=== PATIENT | male | born 1955 | race Caucasian/White ===

== ENCOUNTER 2020-05-20 09:15 | Inpatient (IN) | payer OTHER, MEDICAID, SELFPAY ==
[2020-05-20] VITALS (97 sets, daily range): BP systolic 74–159; BP diastolic 50–94; PULSE 62–175; RESP 0–27; TEMP 35.5–36.6; O2SAT 89–100
--- NOTE | 2020-05-20 | RT.EKG_ITS ---
APPROVED REPORT Exam: Resting ECG Patient Location: I HR:127 bpm ECG Measurements Heart Rate 127 AXIS UT 118 P 62 QRSd 134 QRS -77 QT 355 T 24 QTc 517 <Conclusion> Sinus tachycardia...rate> 99 Atrial premature complex...SV complex w/ short R-R interval RBBB and LAFB...QRSd >120mS, axis(-40,240)
[2020-05-20] MEDS: Normal Saline Flush 10 ML SYR (09:00)
[2020-05-20] MEDS: Ondansetron 4 MG/2 ML VIAL (09:00)
[2020-05-20] MEDS: MORPHine 2 MG/ML SYR (09:00)
--- NOTE | 2020-05-20 09:30 | HPE_ITS ---
Date of service: 05/20/20 Time of Service: 09:30 Assessment and Plan Assessment and plan (1) Jejunal ulcer: Status: Acute Assessment and plan: Patient has been started on IV Protonix. His hemoglobin has dropped down to 8.4 which I think is more of his baseline given his degree of dehydration in the hospital. Do not feel that he is actively bleeding at this point. However he has high risk for this and we are going to transfuse him. I do not feel he is stable for anesthesia and he at this time (2) Lactic acidosis: Status: Acute (3) Elevated troponin: Status: Acute (4) Elevated serum GGT level: Status: Acute (5) Hypomagnesemia: Status: Acute (6) Small bowel obstruction: Status: Acute Assessment and plan: We will continue with conservative medical management. If the bowel obstruction does not resolve and he will need to be transferred to [facility] for surgical intervention. (7) Alcohol withdrawal: Status: Acute Assessment and plan: It is unknown whether he has ever had a seizures in the past (8) Acute respiratory failure with hypoxia and hypercapnia: Status: Acute Assessment and plan: Patient was intubated and sedated for alcohol withdrawals and for airway safety. (9) Rapid atrial fibrillation: Status: Acute Assessment and plan: He was started on diltiazem and IV metoprolol for this and has responded nicely. (10) Urinary retention: Status: Acute (11) Essential hypertension: Status: Acute (12) Exocrine pancreatic insufficiency: Status: Acute (13) BPH loc w urin obs/LUTS: Status: Acute Assessment and plan: Urology was able to place Otoole catheter. History of Present Illness Consults Consult date: 05/20/20 Narrative: Pt was seen and examined at 9am. On original exam-patient was not complaining of nausea and abdominal pain. I did review his CTs from [facility][1] which did show that patient was status post Whipple, that he did have a bowel obstruction, and some thickening in the stomach and. Patient was rather uncooperative and was not very forthcoming with his medical history. He did admit that he drinks 6-7 shots of alcohol a day. He has had a longstanding sobriety, but has recently relapsed. At that point patient was not giving us any further information. I did review all the information that was sent to us from [facility][1]. CT scan from [facility][1] did show that there is wall thickening of the stomach consistent with gastroenteritis. There is a small bowel obstruction with focal transition point in the left mid abdomen likely from adhesions. No free air. Changes associated from Whipple.. patient was having a lot of pain. Patient was medicated for his pain. Fluid hydration was started. An NG tube was placed. Routine nursing cares were started. Patient had abdominal pain, but did not exhibit signs of peritonitis. His abdomen was not significantly distended. There is no ascites. Postsurgical changes noted. He did not have many bowel sounds. I did reevaluate the patient at 11 AM. He at this point he is starting to exhibit pretty significant signs of withdrawal. He was quite tremulous he was becoming more incoherent during his speech. His thought processes were no longer linear and logical. His vitals remained stable. We did start him on a lcohol withdrawal protocol. Again at this point he does not exhibit any signs peritonitis. Nursing had worked on getting a Otoole catheter placed but were not able to place a Otoole catheter. And urology was consulted for catheter placement. At noon I went back and evaluated the patient he had been medicated for with Perper per withdrawal protocol. He was discovered after reviewing his chart fr [facility]. That he had an extensive. History of obstructive sleep apnea. He is not known whether he is using his CPAP at home. He had the respiratory pattern of someone with obesity hypoventilation syndrome, despite his not being obese. He was also significantly having agitation, and was quite delirious. He had developed tachycardia into the 130s. I did obtain an EKG and repeat troponins. I did consult Dr. Anaya at this point. We did spend an hour reviewing his chart from [facility]. 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 He has been on the vent multiple times with Sirs and respiratory failure. 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 His Whipple was complicated by postop infection and required multiple drains. ( E. coli adn Klebsiella) He also sustained a splenic rupture. Unknown if this was traumatic or secondary to surgery. He is on insulin and pancreatic enzymes. He has had problems with chronic problems with diarrhea. From reviewing his notes from [facility]. He had been started on metoprolol in the past for A. fib. He was in the hospital in 2018 with Sirs/sepsis and severe protein calorie malnutrition. The final discharge diagnosis was viral enteritis/clinical dehydration/severe malnutrition. They had stopped his metoprolol at that point because he was having issues with hypotension even once the sepsis had resolved. He was not in A. fib. He is also had multiple problems with the anastomotic ulcer on the jejunal side. He has been scoped multiple times and has had to have multiple transfusions because of this. He supposed to be on Carafate daily. He has not taken it for the last 2 to 3 weeks as was noted in the nurses notes at [facility][1]. At this point he still was very agitated and restless. He has been currently sedated for alcohol withdrawal. He was exhibiting signs of DTs. He was medicated appropriately based on his CIWA score. He was still agitated and quite hypoxic. He was started on CPAP/BiPAP status. ABG was obtained. Patient was still restless and agitated trying to climb out of bed and pulling on lines. His PCO2 was 67. I did discuss the case and on review all his records from [facility] at this point. Dr. Kumar I did agree that he needed to be intubated to protect his airway, for alcohol withdrawals, PADDY, and respiratory failure. Anesthesia was consulted for intubation. Dr. Melissa did place a central line. Anesthesia also placed an A-line. Patient was reevaluated again at 7 PM repeat labs were reviewed. His hemoglobin had dropped down to 8.4- which I think is more likely to be his baseline. there is no fluid in the NGT/ no blood. He has not moved his bowels or had any bloody bowel movement since he has been in the hospital. He will be transfused. He has had some transient hypotension. Whether this is from the anemia or from the diltiazem drip or from propofol or from the alcohol withdrawal is undetermined at this point. However he does not seem to be actively hemorrhaging. But he does have an extensive history of GI bleed from ulceration at his gastrojejunal anastomosis. There is no signs of ischemic bowel or other acute surgical emergency. We will continue with conservative medical management of his abdomen at this time. Hospitals service was consulted for medical management as well. From reviewing his notes at [facility] he also had had a PE he in the past while on L ovenox. He was started on Coumadin but this had to be discontinued because of pulmonary bronchial hemorrhage. Past medical history noted from 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 He recently had a outpatient sleep study done which did recommend CPAP machine. He was under investigation by cardiology at [facility] for syncopal episodes. Past surgeries significant for: Iridotomy, whipple & BII reconstruction- 2014, mult IR drainages, mult EGD, multiple EUS and biopsy, G-tube and J-tube, IR angio-embolization of the splenic rupture, chest tube, multiple paracentesis, anterior abdominal wall hernia repair at [facility][1] in 2019 4 hours was spent in critical care time by myself of this patient today. Review of Systems Unobtainable due to mental condition and Unobtainable due to mental status [facility] Medical History (Updated 05/20/20 @ 22:43 by Lorie Bazan DO) Acute respiratory failure with hypoxia (Acute) Alcohol induced acute pancreatitis (Acute) BPH loc w urin obs/LUTS (Acute) Cervical spine fracture (Acute) Cholangitis (Acute) Chronic low back pain (Acute) COPD (chronic obstructive pulmonary disease) Depression (Chronic) Diastolic dysfunction (Acute) DM (diabetes mellitus) non-insulin dependent Essential hypertension (Acute) Exocrine pancreatic insufficiency (Acute) GERD without esophagitis (Acute) History of ETOH abuse Infarction of spleen (Acute) Jejunal ulcer (Acute) Narrow angle glaucoma suspect (Acute) PADDY (obstructive sleep apnea) Protein calorie malnutrition (Inactive) Pulmonary embolism (Chronic) RLS (restless legs syndrome) (Acute) Syncopal episodes (Chronic) Unspecified primary angle-closure glaucoma (Acute) Surgical History (Updated 05/20/20 @ 14:19 by Chiquita Myers MD) Cholecystectomy Colonoscopy - [facility] (03/01/17) History of esophagogastroduodenoscopy (EGD) (Inactive) History of pancreatectomy (Acute) Whipple/Billroth II S/P colonoscopy (Acute) Splenic rupture (Acute) Family History (Updated 05/28/19 @ 09:40 by Radha Palmer RN) Mother Bone cancer Father MVA (motor vehicle accident) Brother Stomach cancer Daughter No problems noted. Social History (Updated 05/28/19 @ 09:40 by Radha Palmer RN) Smoking/Tobacco Use Status: Current every day Drug use: Never What is your relationship status?: Panel score (0-1 are the most socially isolated patients): 0 Meds Home Medications and Allergies Home Medications Medication Instructions Recorded Confirmed Type ropinirole [Requip] 1 tab PO HS 06/02/14 05/20/20 History albuterol sulfate [Proair Hfa] 2 puff INHALATION Q4H PRN inhaler 01/31/17 05/20/20 History NS citalopram 20 mg PO DAILY tab-cap NS 01/31/17 05/28/19 History [id number] [Zenpep Dr 1 tab-cap PO TID tab-cap NS 01/31/17 05/20/20 History 20,000 Units Capsule] polyethylene glycol 3350 [Miralax] 255 gm PO for colonoscopy #1 gm 01/31/17 05/28/19 History sildenafil [Viagra] 50 mg PO PRN NS 01/31/17 History acetaminophen 500 mg tablet 500 mg PO Q4H PRN 05/28/19 05/28/19 History cholecalciferol (vitamin D3) 25 1,000 unit PO DAILY 05/28/19 05/28/19 History mcg (1,000 unit) capsule ferrous sulfate 142 mg (45 mg 142 mg PO DAILY 05/28/19 05/20/20 History iron) tablet,extended release furosemide 40 mg tablet 40 mg PO BID 05/28/19 05/28/19 History metoprolol succinate 100 mg 25 mg PO DAILY tab-cap NS 05/28/19 05/28/19 History tablet,extended release 24 hr mirtazapine 30 mg tablet 15 mg PO HS tab 05/28/19 05/20/20 History nicotine 7 mg/24 hr daily 1 patch TD Q24H 05/28/19 05/28/19 History transdermal patch omeprazole 10 mg capsule,delayed 40 mg PO BID tab-cap NS 05/28/19 05/28/19 History release sennosides 8.6 mg-docusate sodium 2 tab PO BID PRN tab 05/28/19 05/28/19 History 50 mg tablet citalopram mg 05/20/20 History furosemide 20 mg PO DAILY 05/20/20 05/20/20 History pantoprazole [Protonix] 40 mg PO Q12H 05/20/20 05/20/20 History potassium chloride 10 meq PO DAILY 05/20/20 05/20/20 History sucralfate [Carafate] 1 g PO QACHS 05/20/20 05/20/20 History Allergies Allergy/AdvReac Type Severity Reaction Status Date / Time ciprofloxacin [From Cipro] Allergy Unverified 06/19/14 07:29 citalopram hydrobromide AdvReac Unknown Unverified 06/19/14 07:29 [From Celexa] hydrochlorothiazide AdvReac Unknown Unverified 06/19/14 07:29 Exam Const General: acute distress, anxious, disheveled and ill appearing Nutritional Appearance: cachectic and malnourished Orientation: oriented to person Limitations: behavioral limitations [facility] Head: normal to inspection and no palpable skull fracture Ears: hearing grossly normal bilaterally General nose exam: external nose normal, nares normal and no nasal discharge Face and sinus: normal facial exam and face symmetric Mouth: oral mucosae normal Teeth and gingiva: poor dentition Eyes Sclera: sclerae normal Pupils: PERRL Direct ophthalmoscopy: normal light reflex Chest Chest: normal inspection of the chest Other: CTA b/l. Resp Effort & Inspection: normal respiratory effort and able to speak in complete sentences Auscultation: clear to auscultation bilaterally Cardio Jugular venous pressure: no JVD Rate: tachycardic Rhythm: abnormal rhythm Other: BP is stable. C nursing notes for numbers GI Other: Postsurgical changes noted. No hernias. There is mild distention. Paucity of bowel sounds. No overt peritonitis. No ascites. Neuro General: moves all extremities Cognition: abnormal cognition Speech: other (Agitated and uncooperative) Motor: other (DT's/tremors) Psych Appearance: disheveled Speech and Movement: agitated Attitude: belligerent Insight: limited Judgment: limited Results Labs Result diagrams: 05/20/20 17:32 05/20/20 13:50
[2020-05-20] MEDS: Pantoprazole 40 MG VIAL IVP ×2 (10:08→23:30)
[2020-05-20] MEDS: Normal Saline Flush 10 ML SYR IVP ×4 (10:09→18:37)
[2020-05-20] MEDS: HYDROmorphone 2 MG/ML VIAL 0.5 MG IVP (10:09)
[2020-05-20 10:10] LABS: Lactate 1.8 mmol/L (0.6-1.4)
[2020-05-20 10:21] LABS: Hemoglobin A1C 5.9 % (3.8-5.6)
[2020-05-20 10:30] LABS: Iron 34 ug/dL (65-175); Total Iron Binding Capacity 122 ug/dL (250-450); Transferrin Sat 28 % (20-55)
[2020-05-20 10:33] LABS: ALT 37 U/L (16-63); AST 46 U/L (15-37); Albumin 2.3 g/dL (3.4-5.0); Alkaline Phosphatase 205 U/L (46-116); Anion Gap 8.7 mmol/L (3-11); BUN 18 mg/dL (7-18); Bilirubin, Total 1.6 mg/dL (0.2-1.0); CO2 30.3 mmol/L (21.0-32.0); CREATININE 1.04 mg/dL (0.70-1.30); Calcium 6.5 mg/dL (8.5-10.1); Chloride 100 mmol/L (98-107); Glucose 156 mg/dL (74-106); Magnesium 0.9 mg/dL (1.8-2.4); Potassium 3.7 mmol/L (3.5-5.1); Sodium 139 mmol/L (136-145); Total Protein 5.4 g/dL (6.4-8.2)
[2020-05-20 10:38] LABS: Troponin I 0.08 ng/mL (<0.06)
[2020-05-20 10:43] LABS: Ferritin 554 ng/mL (26-388)
[2020-05-20] MEDS: Normal Saline 500 ML 1000 ML IV (10:50)
[2020-05-20 11:02] LABS: D-Dimer 929 ng/mlFEU (<500)
[2020-05-20 11:09] LABS: GGT 803 U/L (15-85)
[2020-05-20] MEDS: Albuterol/Ipratropium 3 ML UPD VIAL UPD (11:15)
[2020-05-20] MEDS: MAGNESIUM SULFATE 2 GM/50 ML BAG IVPB (12:15)
[2020-05-20] MEDS: Normal Saline 1,000 ML 150 ML IV ×2 (12:45→19:44)
[2020-05-20] MEDS: LORazepam 2 MG/ML VIAL IVP (12:46)
[2020-05-20] MEDS: MULTIVITAMIN 10 ML, THIAMINE 100 MG, FOLIC ACID 1 MG in DEXTROSE 5%-0.45% SALINE 1,000 ML 42 ML IV (12:47)
[2020-05-20] MEDS: Insulin Aspart 300 UNITS/3 ML PEN SC ×2 (13:04→18:50)
--- NOTE | 2020-05-20 13:08 | UCONE_ITS ---
Date of service: 05/20/20 Time of Service: 12:20 Assessment and Plan Assessment and plan (1) Urinary retention: Status: Acute Assessment and plan: After consent given by patient a 16 Japanese coud? tip was placed without difficulty. LUMBER ESTIMATOR attached catheter to bedside bag where yellow urine drained freely. Patient reports relief of his suprapubic discomfort. Report to nursing staff about procedure was given. History of Present Illness History of Present Illness Chief Complaint: urinary retention Narrative: Urology was asked to consult in terms of needing a catheter placement for this individual. Patient reports the last time he voided was approximately 8:00 this morning. He is unable to void over the last 4 hours. He is feeling suprapubic discomfort. He does not have any flank pain. Patient reports that this is happened previously. He has had urinary retention that he has been able to work through. He is unaware of any prostate issues. He is not taking any prostate medications to his knowledge. He reports no fevers, hematuria, suprapubic discomfort, or flank pain. Nursing reported an attempt to place catheter however met resistance and were unable to place catheter for this individual. Consults Consult date: 05/20/20 Requesting physician: Lorie Bazan Review of Systems Narrative: As noted in HPI [facility] Medical History (Updated 05/20/20 @ 13:19 by Hillary Reich DNP) Acute respiratory failure with hypoxia (Acute) Alcohol induced acute pancreatitis (Acute) Cholangitis (Acute) Chronic low back pain (Acute) COPD (chronic obstructive pulmonary disease) Depression (Chronic) Diastolic dysfunction (Acute) DM (diabetes mellitus) non-insulin dependent Essential hypertension (Acute) Exocrine pancreatic insufficiency (Acute) GERD without esophagitis (Acute) History of ETOH abuse Infarction of spleen (Acute) Narrow angle glaucoma suspect (Acute) PADDY (obstructive sleep apnea) Protein calorie malnutrition (Inactive) Pulmonary embolism (Chronic) RLS (restless legs syndrome) (Acute) Syncopal episodes (Chronic) Unspecified primary angle-closure glaucoma (Acute) Surgical History (Updated 05/20/20 @ 13:16 by Chiquita Myers MD) Cholecystectomy Colonoscopy - [facility] (03/01/17) Splenic rupture (Acute) Family History (Updated 05/28/19 @ 09:40 by Radha Palmer RN) Mother Bone cancer Father MVA (motor vehicle accident) Brother Stomach cancer Daughter No problems noted. Social History (Updated 05/28/19 @ 09:40 by Radha Palmer RN) Smoking/Tobacco Use Status: Current every day Drug use: Never What is your relationship status?: Panel score (0-1 are the most socially isolated patients): 0 Exam Const General: cooperative and in distress Orientation: alert and awake Eyes Sclera: sclerae normal Resp Effort & Inspection: normal respiratory effort and able to speak in complete sentences Male General Exam: Yes normal external exam Penis: normal penis Meatus: meatus normal Results Last Vital Signs Pulse 122 H 05/20/20 11:15 Resp 20 05/20/20 11:15 Pulse Ox 99 05/20/20 11:15 Labs Result diagrams: 05/20/20 09:56 Labs: Laboratory Results - last 24 hr 05/20/20 05/20/20 05/20/20 09:56 09:56 09:56 D-Dimer 929 H Sodium 139 Potassium 3.7 Chloride 100 Carbon Dioxide 30.3 Anion Gap 8.7 BUN 18 Creatinine 1.04 Estimated GFR/1.73 m2 >= 60.00 Glucose 156 H Hemoglobin A1c 5.9 H Lactate Calcium 6.5 L Magnesium 0.9 L Iron TIBC Transferrin % Sat Ferritin Total Bilirubin 1.6 H GGT AST 46 H ALT 37 Alkaline Phosphatase 205 H Troponin I Total Protein 5.4 L Albumin 2.3 L 05/20/20 05/20/20 05/20/20 09:56 09:56 09:56 D-Dimer Sodium Potassium Chloride Carbon Dioxide Anion Gap BUN Creatinine Estimated GFR/1.73 m2 Glucose Hemoglobin A1c Lactate 1.8 H Calcium Magnesium Iron TIBC Transferrin % Sat Ferritin Total Bilirubin GGT 803 H AST ALT Alkaline Phosphatase Troponin I 0.08 H* Total Protein Albumin 05/20/20 05/20/20 09:56 09:56 D-Dimer Sodium Potassium Chloride Carbon Dioxide Anion Gap BUN Creatinine Estimated GFR/1.73 m2 Glucose Hemoglobin A1c Lactate Calcium Magnesium Iron 34 L TIBC 122 L Transferrin % Sat 28 Ferritin 554 H Total Bilirubin GGT AST ALT Alkaline Phosphatase Troponin I Total Protein Albumin Insert Bladder Catheter Procedure performed by: Hillary Reich Indication for procedure: Yes Informed consent given: Yes Position of patient: supine Sterilizing agent: Yes Type of anesthesia: topical gel Catheter size (Fr): 16 Catheter type: coude tip Lubrication: Yes Catheter inserted: without difficulty Volume instilled into catheter balloon: 10cc Urine color: yellow Urine clarity: clear Clots present: No Irrigation: No Catheter attached to: bedside drainage bag Patient tolerated procedures: well Complications: No
--- NOTE | 2020-05-20 13:11 | W.MEDCONSULT ---
Date of service: 05/20/20 Time of Service: 13:35 Assessment and Plan Assessment and plan (1) Acute respiratory failure with hypoxia and hypercapnia: Status: Acute Assessment and plan: In setting of alcohol withdrawal, requiring medication with benzodiazepines, and SBO requiring narcotic pain medication, with underlying PADDY. The patient has an NGT for decompression of his small bowel. While he seems to be more awake on BiPAP with ABG pending, he is also tremulous right now as this note is being written, which indicates to me that he will require more benzodiazepines in the near future - and this is just the beginning of his alcohol withdrawal. Additionally, BiPAP is blowing air into his GI tract. Ultimately, I feel the safest thing to do for this patient will be ET intubation. Anesthesia has been notified. The patient does have a h/o c-spine fracture earlier this month - obtaining XR to see where this is. (2) Rapid atrial fibrillation: Status: Acute Assessment and plan: In setting of alcohol withdrawal/acute illness. It does look like at some point the patient was on diltiazem orally, but no diagnosis is documented as to why. Per Dr Hyman's note in [facility] record, the patient had several recent syncopal events and just finished wearing a zio patch - we do not have those results at this time, but I suspect that these happened in setting of rapid Afib. Echo has been obtained - await read. Monitor in the ICU on cardizem drip and, if needed, additional IV lopressor. Treat underlying withdrawal, SBO. (3) Alcohol withdrawal: Status: Acute Assessment and plan: Read above - ultimately, I think the patient will need to be intubated and placed on propofol drip. (4) Small bowel obstruction: Status: Acute Assessment and plan: Reviewed CT read from [facility] and [facility] - does seem to have a transition point, but proximal portion of the bowel is not horribly dilated. Discussed with Dr Melissa - patient does not need emergent surgery. Should he need surgery, I think that a transfer to a tertiary care facility would be indicated. (5) Elevated troponin: Status: Acute Assessment and plan: Probably indicator of slight cardiac strain from rapid Afib rather than a true NSTEMI. Continue to trend troponins. Monitor in the ICU. I do not think he needs HEATHER. (6) Hypomagnesemia: Status: Acute Assessment and plan: Replete and recheck in am (7) Elevated serum GGT level: Status: Acute Assessment and plan: In light of alcoholic liver disease, I do not think this represents true liver failure. Will need to be trended. Will calculat discriminant function score once have labs back (8) Lactic acidosis: Status: Acute Assessment and plan: Multifactorial: due to Afib, dehydration, alcoholic liver disease, bowel obstruction, hypoxemia. Continue IVF, slow down HR, decompress bowel. Continue to trend. 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 On PPI. Patient noncompliant with carafate. COntinue PPI. Monitor for GI bleeding. 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 On arrival to our facility, the patient was found to be in rapid Afib with HR in 120s - 130s, and to be in alcohol withdrawal, requiring IV ativan. After he received 3 mg of IV ativan, he became virtually unresponsive with apneic episodes and hypoxia. BiPAP was initiated, but the patient remains arousable only to sternal rub. He is having apneic episodes on the BiPAP as well. Hospitalists were consulted to help manage his alcohol withdrawal, respiratory failure, and rapid Afib. The patient cannot provide any history at the time of the exam. Review of Systems Unobtainable due to mental status [facility] Medical History (Updated 05/20/20 @ 14:56 by Chiquita Myers MD) Acute respiratory failure with hypoxia (Acute) Alcohol induced acute pancreatitis (Acute) Cervical spine fracture (Acute) Cholangitis (Acute) Chronic low back pain (Acute) COPD (chronic obstructive pulmonary disease) Depression (Chronic) Diastolic dysfunction (Acute) DM (diabetes mellitus) non-insulin dependent Essential hypertension (Acute) Exocrine pancreatic insufficiency (Acute) GERD without esophagitis (Acute) History of ETOH abuse Infarction of spleen (Acute) Jejunal ulcer (Acute) Narrow angle glaucoma suspect (Acute) PADDY (obstructive sleep apnea) Protein calorie malnutrition (Inactive) Pulmonary embolism (Chronic) RLS (restless legs syndrome) (Acute) Syncopal episodes (Chronic) Unspecified primary angle-closure glaucoma (Acute) Surgical History (Updated 05/20/20 @ 14:19 by Chiquita Myers MD) Cholecystectomy Colonoscopy - [facility] (03/01/17) History of esophagogastroduodenoscopy (EGD) (Inactive) History of pancreatectomy (Acute) Whipple/Billroth II S/P colonoscopy (Acute) Splenic rupture (Acute) Family History (Updated 05/28/19 @ 09:40 by Radha Palmer RN) Mother Bone cancer Father MVA (motor vehicle accident) Brother Stomach cancer Daughter No problems noted. Social History (Updated 05/28/19 @ 09:40 by Radha Palmer RN) Smoking/Tobacco Use Status: Current every day Drug use: Never What is your relationship status?: Panel score (0-1 are the most socially isolated patients): 0 Exam Narrative Exam Narrative: General: Middle-aged male who is sedated, arousable only to sternal rub, not following commands Neurological: As above; no obvious focal deficits, but lethargic/obtunded Psychiatric: impossible to assess at this time Skin: visible skin intact HEENT: Atraumatic, normocephalic, at the time of my exam, opening eyes only to sternal rub, EOMI, dry MM, NGT in place, BiPAP mask being put on Cardiovascular: irregularly irregular rhythm, tachycardic Lungs: CTAB - diminished; having apneic episodes of BiPAP Gastrointestinal: soft, no bowel sounds, not distended Genitourinary: no delgado catheter at the time of my exam Extremities: no edema BLE's, +1 pedal pulses B Results Last Vital Signs Pulse 122 H 05/20/20 11:15 Resp 20 05/20/20 11:15 Pulse Ox 99 05/20/20 11:15 Labs Result diagrams: 05/20/20 13:50 05/20/20 09:56 Labs: Laboratory Results - last 24 hr 05/20/20 05/20/20 05/20/20 09:56 09:56 09:56 D-Dimer 929 H Sodium 139 Potassium 3.7 Chloride 100 Carbon Dioxide 30.3 Anion Gap 8.7 BUN 18 Creatinine 1.04 Estimated GFR/1.73 m2 >= 60.00 Glucose 156 H Hemoglobin A1c 5.9 H Lactate Calcium 6.5 L Magnesium 0.9 L Iron TIBC Transferrin % Sat Ferritin Total Bilirubin 1.6 H GGT AST 46 H ALT 37 Alkaline Phosphatase 205 H Troponin I Total Protein 5.4 L Albumin 2.3 L 05/20/20 05/20/20 05/20/20 09:56 09:56 09:56 D-Dimer Sodium Potassium Chloride Carbon Dioxide Anion Gap BUN Creatinine Estimated GFR/1.73 m2 Glucose Hemoglobin A1c Lactate 1.8 H Calcium Magnesium Iron TIBC Transferrin % Sat Ferritin Total Bilirubin GGT 803 H AST ALT Alkaline Phosphatase Troponin I 0.08 H* Total Protein Albumin 05/20/20 05/20/20 09:56 09:56 D-Dimer Sodium Potassium Chloride Carbon Dioxide Anion Gap BUN Creatinine Estimated GFR/1.73 m2 Glucose Hemoglobin A1c Lactate Calcium Magnesium Iron 34 L TIBC 122 L Transferrin % Sat 28 Ferritin 554 H Total Bilirubin GGT AST ALT Alkaline Phosphatase Troponin I Total Protein Albumin
[2020-05-20] MEDS: dilTIAZem 125 MG in Normal Saline 100 ML 10 MG IV (13:15)
[2020-05-20 13:39] LABS: HCO3 26 mmol/L (22-28); pO2 137 mmHg (83-108)
[2020-05-20 13:44] LABS: Site Right Radial; pCO2 67 mmHg (34-47); sO2 > 99 % (94-98)
[2020-05-20 13:45] LABS: FIO2 60 %
[2020-05-20 14:08] LABS: Abs Immature Grans 0.04 k/cumm (0.0-0.09); Absolute Basophil Count 0.01 k/cumm (0.0-0.2); Basophils % 0.1; HCT 33.3 % (40.0-50.0); HGB 10.7 g/dL (13.5-17.5); Immature Grans % 0.3 %; Lactate 3.3 mmol/L (0.6-1.4); Lymphocytes % 3.2; Mean Corp. HGB Concentration 32.1 g/dL (32.0-36.0); Mean Corpuscular Hemoglobin 34.4 pg (27.0-33.0); Mean Corpuscular Volume 107.1 fL (80-95); Mean Platelet Volume 10.5 fL (8.0-11.0); Monocytes % 4.5; Neutrophils % 91.9; Platelet Count 358 x1000/uL (130-400); RBC 3.11 m/cumm (4.50-6.00); RBC Distribution Width 14.2 % (11.8-14.1); White Blood Cell Count 13.01 k/cumm (4.4-10.8)
[2020-05-20 14:11] LABS: Absolute Lymphocyte Count 0.42 k/cumm (1.2-3.4); Absolute Monocyte Count 0.59 k/cumm (0.11-0.7); Absolute Neutrophil Count 11.96 k/cumm (1.2-6.7)
--- NOTE | 2020-05-20 14:22 | DI.RAD_ITS ---
EXAM: XR PORTABLE CHEST AP CLINICAL HISTORY: acute hypoxic hypercapnic respiratory failure TECHNIQUE: 2D digital imaging was performed. COMPARISON: No priors for comparison FINDINGS: MEDIASTINUM: Normal. HEART: Normal. PULMONARY VASCULATURE: Normal. LUNGS: Increased markings in the left base which may represent atelectasis or pneumonia. PLEURAL SPACE: No pleural effusion or pneumothorax. BONE:No acute abnormality. OTHER FINDINGS:Tip of the nasogastric tube is seen below the hemidiaphragm just within the stomach. IMPRESSION: Increased lung markings in the left base which may represent atelectasis or pneumonia. Tip of the nasogastric tube is just within the stomach. DATA REPOSITORY: RADIATION DOSE DELIVERED:
--- NOTE | 2020-05-20 14:26 | DI.RAD_ITS ---
EXAM: XR CERVICAL SPINE 1V CLINICAL HISTORY: h/o recent cervical fracture. TECHNIQUE: 2D digital imaging was performed. COMPARISON: No exams were available for comparison FINDINGS: This is an incomplete examination. Only portable, semi upright lateral images were obtained. C1 thr ough the superior aspect of C6 are visualized on this examination. There is normal alignment. The v ertebral bodies and disc spaces appear well maintained. There is a nasogastric tube in place. The p revertebral soft tissues are unremarkable. IMPRESSION: Incomplete cervical spine series. Visualized cervical spine shows normal alignment. Portions of a nasogastric tube are in place. DATA REPOSITORY: RADIATION DOSE DELIVERED:
[2020-05-20 14:30] LABS: Anisocytosis 1+; Diff Comment RBC Morph Reviewed; Macrocytosis 1+; Poikilocytes 1+; Polychromasia Present
--- NOTE | 2020-05-20 14:33 | DI.RAD_ITS ---
EXAM: 2D digital imaging was performed. CLINICAL HISTORY: SBO. COMPARISON: No exams were available for comparison TECHNIQUE: Supine views of the abdomen performed. FINDINGS: BOWEL GAS PATTERN: Mildly distended loops of small bowel are seen in the upper abdomen. CALCIFICATIONS: Vascular calcifications are present. OSSEOUS STRUCTURES: Degenerative changes in the spine. OTHER FINDINGS: There is a Otoole catheter in place. There is contrast seen in the renal collecting s ystem and urinary bladder likely reflecting recent CT scan. Surgical clips in the upper abdomen. IMPRESSION: 1. Mildly dilated loops of small bowel. This may represent an ileus or possible small-bowel obstruct ion. Please correlate clinically. 2. No radiopaque calculi. DATA REPOSITORY: RADIATION DOSE DELIVERED:
[2020-05-20] MEDS: MAGNESIUM SULFATE 4 GM/100 ML BAG IVPB (15:03)
[2020-05-20 15:13] LABS: INR 1.1 (0.9-1.1); Prothrombin Time 11.3 sec (9.3-11.0)
[2020-05-20 15:18] LABS: ALT 35 U/L (16-63); AST 41 U/L (15-37); Albumin 2.2 g/dL (3.4-5.0); Alkaline Phosphatase 190 U/L (46-116); Bilirubin, Direct 0.51 mg/dL (0.00-0.20); Total Protein 5.2 g/dL (6.4-8.2)
[2020-05-20 15:21] LABS: Anion Gap 11.4 mmol/L (3-11); BUN 19 mg/dL (7-18); CO2 25.6 mmol/L (21.0-32.0); Calcium 6.5 mg/dL (8.5-10.1); Chloride 103 mmol/L (98-107); Estimated GFR 55.06 (mL/min/1.73m2); Glucose 184 mg/dL (74-106); Magnesium 1.8 mg/dL (1.8-2.4); Potassium 3.4 mmol/L (3.5-5.1); Sodium 140 mmol/L (136-145)
[2020-05-20 15:27] LABS: Troponin I 0.08 ng/mL (<0.06)
[2020-05-20] MEDS: PROPOFOL 1,000 MG/100 ML BTL 27.27 MG IVPB ×2 (15:31→18:36)
[2020-05-20] MEDS: Metoprolol 5 MG/5 ML VIAL (15:36)
--- NOTE | 2020-05-20 15:55 | PDOC.ANES ---
Date of service: 05/20/20 Time of Service: 15:30 Anesthesia Note Report Anesthesia Note: Airway Management Note (Intubation): Called to secure airway of Mr. Martinez. Consent obtained from patient, Dr. Myers was unable to contact next of kin. Pt. is on BiPAP. Due to concern for controlling his airway/high aspiration risk with altered mental status in the setting of receiving Ativan for alcohol withdrawal as well as having a small bowel obstruction. Preinduction arterial line placed. Pt. bed moved away from wall, suction and BVM at head of bed. RT at bedside with ventilator ready. Pt. continued to preoxygenate on BiPAP at 100% FiO2. Pt. induced with 3mg versed, 50mg propofol, 100mg succinylcholine and 50mg rocuronium. ETT placed at 1530 using #3 blade/glidescope with grade I view with very dry oral mucosa. ETT passed to 21cm at lips (edentulous). Positive ETCO2 capnography, remained hemodynamically stable and was started on propofol drip at 75mcg/kg/min for post management. No complications with first attempt success. X-Ray will be ordered after central line placement. Report given to RN/MD.
--- NOTE | 2020-05-20 16:00 | DI.RAD_ITS ---
EXAM: XR PORTABLE CHEST AP CLINICAL HISTORY: s/p intubation and central line placement TECHNIQUE: 2D digital imaging was performed. COMPARISON: CR XR PORTABLE CHEST AP from 05/20/2020 FINDINGS: MEDIASTINUM: Normal. HEART: Normal. PULMONARY VASCULATURE: Normal. LUNGS: Bilateral basilar infiltrates. PLEURAL SPACE: Blunting of the left costophrenic angle which may represent a small pleural effusion. BONE:Degenerative changes in the spine. OTHER FINDINGS:The endotracheal tube tip terminates 5.2 cm above the ernesto. The nasogastric tube ti p terminates in the stomach. The tip of the left-sided central venous catheter is in good position i n the superior vena cava. IMPRESSION: 1. Lines and tubes as described above. 2. Bilateral basilar infiltrates which may represent atelectasis or pneumonia. Small left pleural ef fusion. DATA REPOSITORY: RADIATION DOSE DELIVERED:
--- NOTE | 2020-05-20 16:41 | DI.VRAD_ITS ---
PROCEDURE INFORMATION: Exam: XR Chest, 1 View Exam date and time: 05/20/2020 4:20 PM Age: 65 years old Clinical indication: Device placement; Picc TECHNIQUE: Imaging protocol: XR of the chest Views: 1 view. COMPARISON: CR XR PORTABLE CHEST AP 05/20/2020 2:16 PM FINDINGS: Tubes, catheters and devices: Left-sided approach PICC terminates over the proximal SVC. Endotracheal tube tip projects over the mid intrathoracic trachea. Lungs: Ill-defined right basilar opacity. Clear lungs otherwise. Normal cardiomediastinal silhouette otherwise. Pleural space: Suspected small left-sided pleural effusion. Heart/Mediastinum: See Lungs finding. Vasculature: Vascular coil projects over the mid abdomen. Aortic arch calcifications. Bones/joints: No acute displaced fractures. Gastrointestinal tract: Tip of esophagogastric tube projects over the expected location of the gastric lumen. IMPRESSION: 1. Lines and tubes as above. 2. Suspected small left-sided pleural effusion. 3. Ill-defined right basilar opacity is indeterminate possibly representing atelectasis but would be concerning for pneumonia in the appropriate clinical setting. Dictated and Authenticated by: Denny Mccann MD. Ordering:CESAR Moser MD
[2020-05-20 16:47] LABS: BE -2.2 mmol/L (-3-3); HCO3 26 mmol/L (22-28); pH 7.22 (7.35-7.45); pO2 155 mmHg (83-108)
[2020-05-20 16:52] LABS: pCO2 63 mmHg (34-47); sO2 > 99 % (94-98)
--- NOTE | 2020-05-20 17:03 | W.PM.OP ---
Date of service: 05/20/20 Time of Service: 17:03 Operative Note Operative Note DATE OF PROCEDURE: 05/20/20 PRE-OP DIAGNOSIS: intubation, alcohol withdrawel POST-OP DIAGNOSIS: same PROCEDURE: Left subclavian central line placement SURGEON: Shanti Melissa ANESTHESIA: local (1% Lidocaine) and other (Patient intubated and sedated on propofol) ESTIMATED BLOOD LOSS: 5 PATHOLOGY: none sent COMPLICATIONS: None Patient was transported to: no change Patient's condition: critical Indications: Mr. Martinez 65-year-old gentleman who was a direct admit from [facility] for a small bowel obstruction. As soon as patient arrived to the intensive care unit he was in full withdrawal from alcohol. He was agitated and so he was placed on a CIWA scale and given Ativan. In order to get his delirium tremens under control he would get enough Ativan that he then would stop breathing or do some guppy breathing. His blood pressures were low and he kept going into V. tach. Hospitalist was consulted. Patient was placed on CPAP for his hypercarbia but due to the underlying SBO we were afraid that he would vomit and aspirate. We discussed plan of intubation with his Daughter who is his front desk person. Patient was intubated. A line was placed by anesthesia. Procedure Description: After informed consent was obtained the patient was placed in a supine position on his ICU bed. The head of the bed was lowered. A time out was done and her name, and procedure to be done were reviewed. Sharps were counted. The left chest wall was then prepped and draped in a standard fashion with chlorhexidine. Next 5 cc of 1% Lidocaine was injected into the dermis and subcutaneous tissue along the left clavicle. The introducer needle was then slowly advanced into the subclavian vein. Once I was able to pull venous blood into the syringe, the syringe was removed from the needle. The guidewire was then placed easily without resistance into the subclavian vein. The needle was removed. A small incision was made with an 11 blade next to the guidewire. The dilator was then placed over the guidewire into the vein. The dilator was removed and the triple lumen catheter was placed over the guidewire into the vein to 16 cm. The guidewire was removed and needless valves were placed on each lumen. Each lumen was then aspirated and flushed with sterile saline. The Central line was then secured in place with 2-0 silk suture. The skin was cleaned and dried and an antibiotic wheel was applied at the skin entrance. An occlusive dressing was then applied. The drapes were removed. Sharps were counted and were correct at the end of the procedure. The patient tolerated the procedure well. Stat CXR was ordered and showed good position of the central line and no pneumothorax.
[2020-05-20] MEDS: Lactated Ringers 1,000 ML 1000 ML IV (17:15)
[2020-05-20 17:50] LABS: Lactate 3.4 mmol/L (0.6-1.4)
[2020-05-20 17:51] LABS: HCO3 26 mmol/L (22-28); pCO2 53 mmHg (34-47); pH 7.29 (7.35-7.45); pO2 85 mmHg (83-108); sO2 97 % (94-98); tCO2 25 mmol/L (22-29)
[2020-05-20 17:54] LABS: Abs Immature Grans 0.05 k/cumm (0.0-0.09); Absolute Lymphocyte Count 0.28 k/cumm (1.2-3.4); Absolute Monocyte Count 0.71 k/cumm (0.11-0.7); Absolute Neutrophil Count 10.78 k/cumm (1.2-6.7); HCT 25.8 % (40.0-50.0); HGB 8.4 g/dL (13.5-17.5); Immature Grans % 0.4 %; Lymphocytes % 2.4; Mean Corp. HGB Concentration 32.6 g/dL (32.0-36.0); Mean Corpuscular Hemoglobin 34.9 pg (27.0-33.0); Mean Corpuscular Volume 107.1 fL (80-95); Mean Platelet Volume 10.6 fL (8.0-11.0); Neutrophils % 91.2; Platelet Count 273 x1000/uL (130-400); RBC 2.41 m/cumm (4.50-6.00); White Blood Cell Count 11.82 k/cumm (4.4-10.8)
[2020-05-20 17:55] LABS: FIO2 30 %; Site Right Radial
[2020-05-20 18:11] LABS: Diff Comment RBC Morph Reviewed
[2020-05-20 18:12] LABS: Macrocytosis 2+
[2020-05-20] MEDS: POTASSIUM CHLORIDE 20 MEQ/100 ML BAG 50 MEQ IVPB ×2 (18:23→20:30)
[2020-05-20 18:48] LABS: BE -0.6 mmol/L (-3-3); HCO3 25 mmol/L (22-28); pCO2 46 mmHg (34-47); pH 7.34 (7.35-7.45); pO2 89 mmHg (83-108); sO2 98 % (94-98); tCO2 24 mmol/L (22-29)
[2020-05-20 18:50] LABS: FIO2 30 %; Site Right Radial
[2020-05-20 19:26] LABS: Bilirubin Negative (Negative); Blood Large (Negative); Clarity Clear (Clear); Glucose Negative (Negative); Ketones Negative (Negative); Leukocyte Esterase Negative (Negative); Nitrite Negative (Negative); Specific Gravity 1.025 (1.005-1.025); Urobilinogen 0.2 EU/dL (Up TO 0.2); pH 5.5 (5-8)
[2020-05-20 19:39] LABS: Bacteria Few HPF (Negative); C & S Indicated? C&S Done As Ordered; Casts 3-5 Coarse Granular LPF (Negative); Crystals Few Uric Acid HPF (Negative); Epithelial Cells Few HPF (Negative); Mucus Negative (Negative); RBC >50 HPF (0-2)
[2020-05-20] MEDS: ACETAMINOPHEN 1,000 MG/100 ML BTL 400 MG IVPB (21:00)
[2020-05-20] MEDS: diphenhydrAMINE 50 MG/ML VIAL 25 MG IVP (21:00)
[2020-05-20] MEDS: POTASSIUM CHLORIDE 10 MEQ/100 ML BAG 100 MEQ IVPB (23:27)
[2020-05-21] VITALS (87 sets, daily range): BP systolic 82–123; BP diastolic 52–71; PULSE 61–105; RESP 1–34; TEMP 35.9–36.5; O2SAT 64–99
--- NOTE | 2020-05-21 | DI.RAD_ITS ---
EXAM: 2D digital imaging was performed. CLINICAL HISTORY: increased abdom pain. COMPARISON: CR,XR XR ABDOMEN FLAT PLATE from 05/21/2020 TECHNIQUE: Supine views of the abdomen performed. FINDINGS: BOWEL GAS PATTERN: There is again seen a stable collection of air which probably lies in the mid warren sverse colon. Remainder of the bowel is unremarkable. CALCIFICATIONS: No radiopaque calcifications. OSSEOUS STRUCTURES: Normal for age. OTHER FINDINGS: The tip of the nasogastric tube is seen in the stomach. Surgical clips and coils are seen in the upper abdomen. Vascular calcifications are present in the soft tissues. IMPRESSION: Stable appearance of the abdomen compared to prior examinations. DATA REPOSITORY: RADIATION DOSE DELIVERED:
[2020-05-21] MEDS: Insulin Aspart 300 UNITS/3 ML PEN SC ×3 (00:15→19:03)
[2020-05-21] MEDS: PROPOFOL 1,000 MG/100 ML BTL 14.544 MG IVPB ×2 (01:13→08:15)
[2020-05-21] MEDS: PIPERACILLIN/TAZO 3.375 GM in Normal Saline 50 ML IVPB ×4 (01:35→20:09)
[2020-05-21 06:20] LABS: FIO2L 50% L; Site Right Radial
[2020-05-21] MEDS: Normal Saline 1,000 ML 100 ML IV (06:41)
[2020-05-21 06:49] LABS: Abs Immature Grans 0.05 k/cumm (0.0-0.09); Absolute Eosinophil Count 0.01 k/cumm (0.0-0.7); Absolute Lymphocyte Count 0.38 k/cumm (1.2-3.4); Absolute Neutrophil Count 12.22 k/cumm (1.2-6.7); Eosinophils % 0.1; HCT 34.6 % (40.0-50.0); HGB 11.4 g/dL (13.5-17.5); Immature Grans % 0.4 %; Lymphocytes % 2.8; Mean Corp. HGB Concentration 32.9 g/dL (32.0-36.0); Mean Corpuscular Hemoglobin 33.2 pg (27.0-33.0); Mean Corpuscular Volume 100.9 fL (80-95); Monocytes % 6.6; Neutrophils % 90.1; Platelet Count 256 x1000/uL (130-400); RBC 3.43 m/cumm (4.50-6.00); RBC Distribution Width 15.8 % (11.8-14.1); White Blood Cell Count 13.56 k/cumm (4.4-10.8)
[2020-05-21 06:52] LABS: Absolute Monocyte Count 0.89 k/cumm (0.11-0.7)
--- NOTE | 2020-05-21 06:58 | DI.RAD_ITS ---
EXAM: XR PORTABLE CHEST AP POST LINE CLINICAL HISTORY: intubated patient - confirm position of ET tube TECHNIQUE: 2D digital imaging was performed. COMPARISON: CR,XR XR PORTABLE CHEST AP from 05/20/2020 FINDINGS: MEDIASTINUM: Normal. HEART: Normal. PULMONARY VASCULATURE: Normal. LUNGS: There has been improvement in the basilar infiltrates. No new infiltrates are seen. PLEURAL SPACE: No pleural effusion or pneumothorax. BONE:Normal. OTHER FINDINGS:The tip of the endotracheal tube is 7 cm above the ernesto. The tip of the nasogastric tube is in the stomach. The tip of the left-sided central venous catheter is in the superior vena c luigi. IMPRESSION: No acute pulmonary findings. DATA REPOSITORY: RADIATION DOSE DELIVERED:
--- NOTE | 2020-05-21 07:02 | DI.RAD_ITS ---
EXAM: 2D digital imaging was performed. CLINICAL HISTORY: SBO. COMPARISON: CR XR ABDOMEN FLAT PLATE from 05/20/2020 TECHNIQUE: Supine views of the abdomen performed. FINDINGS: BOWEL GAS PATTERN: Gas-filled viscus is seen in the central abdomen and is unchanged. If there is mane spicious for bowel obstruction, CT should be considered. CALCIFICATIONS: No radiopaque calcifications. OSSEOUS STRUCTURES: Age-appropriate degenerative changes. OTHER FINDINGS: Otoole catheter in place. Tip of the nasogastric tube is seen in the stomach. DATA REPOSITORY: RADIATION DOSE DELIVERED:
[2020-05-21 07:10] LABS: ALT 22 U/L (16-63); AST 31 U/L (15-37); Albumin 1.6 g/dL (3.4-5.0); Alkaline Phosphatase 134 U/L (46-116); Anion Gap 5.8 mmol/L (3-11); BUN 16 mg/dL (7-18); Bilirubin, Total 1.5 mg/dL (0.2-1.0); CO2 26.2 mmol/L (21.0-32.0); CREATININE 0.97 mg/dL (0.70-1.30); Calcium 6.7 mg/dL (8.5-10.1); Chloride 106 mmol/L (98-107); Glucose 135 mg/dL (74-106); Potassium 3.9 mmol/L (3.5-5.1); Sodium 138 mmol/L (136-145); Total Protein 4.2 g/dL (6.4-8.2)
[2020-05-21 07:15] LABS: Magnesium 2.4 mg/dL (1.8-2.4)
[2020-05-21 07:51] LABS: BE 0.4 mmol/L (-3-3); HCO3 26 mmol/L (22-28); pCO2 46 mmHg (34-47); pH 7.36 (7.35-7.45); pO2 102 mmHg (83-108); sO2 98 % (94-98); tCO2 24 mmol/L (22-29)
--- NOTE | 2020-05-21 07:52 | DI.VRAD_ITS ---
PROCEDURE INFORMATION: Exam: XR Chest, 1 View limited for NG tube placement. Exam date and time: 05/21/2020 6:59 AM Age: 65 years old Clinical indication: Device placement; Ett placement (vent status); Patient HX: Intubated patient, confirm position of et tube. TECHNIQUE: Imaging protocol: XR of the chest , limited for NG tube placement Views: 1 view. COMPARISON: CR XR PORTABLE CHEST AP 05/20/2020 4:14 PM FINDINGS: Tubes, catheters and devices: NG tube extends into stomach with side port at the level of the GE junction. This should be advanced 3-5 cm to ensure stable intragastric location. IMPRESSION: NG tube extends into stomach with side port at the level of the GE junction. This should be advanced 3-5 cm to ensure stable intragastric location. Dictated and Authenticated by: Zaire Hood MD. Ordering:KEVAN Porras MD
[2020-05-21 07:53] LABS: FIO2 30 %; Site Right Radial
--- NOTE | 2020-05-21 07:54 | DI.VRAD_ITS ---
PROCEDURE INFORMATION: Exam: XR Abdomen, 1 View Exam date and time: 05/21/2020 7:03 AM Age: 65 years old Clinical indication: Abdominal pain; Other: Sbo; Patient HX: Small bowel obstructon. TECHNIQUE: Imaging protocol: XR of the abdomen. Views: Frontal supine view of the abdomen. 1 View. COMPARISON: CR XR ABDOMEN FLAT PLATE 05/20/2020 2:27 PM FINDINGS: Tubes, catheters and devices: Pelvic catheter may reflect a bladder catheter Gastrointestinal tract: Gas-filled viscus in the central abdomen is a nonspecific finding. If clinical suspicion exists for bowel obstruction, CT imaging would be recommended. Bones/joints: Unremarkable. IMPRESSION: Gas-filled single viscus in the central abdomen is a nonspecific finding. If clinical suspicion exists for bowel obstruction, CT imaging would be recommended. Dictated and Authenticated by: Zaire Hood MD. Ordering:KORY Melo MD
[2020-05-21] MEDS: Albuterol/Ipratropium 3 ML UPD VIAL UPD ×3 (08:14→15:57)
--- NOTE | 2020-05-21 08:16 | W.PM.PROGNOT ---
Date of Service Date of service: 05/21/20 Time of Service: 10:34 Assessment and Plan Assessment and plan (1) Acute respiratory failure with hypoxia and hypercapnia: Status: Acute Assessment and plan: In setting of alcohol withdrawal, requiring medication with benzodiazepines, and SBO requiring narcotic pain medication, with underlying PADDY. The patient has an NGT for decompression of his small bowel. While he seems to be more awake on BiPAP with ABG pending, he is also tremulous right now as this note is being written, which indicates to me that he will require more benzodiazepines in the near future - and this is just the beginning of his alcohol withdrawal. Additionally, BiPAP is blowing air into his GI tract. Ultimately, I feel the safest thing to do for this patient will be ET intubation. Anesthesia has been notified. The patient does have a h/o c-spine fracture earlier this month - obtaining XR to see where this is. (2) Rapid atrial fibrillation: Status: Suspected Assessment and plan: I think the patient has sinus arrhythmia with bouts of SVT which could very well be Afib based on rates. In setting of alcohol withdrawal/acute illness. Echo done, results pending. Would not anticoagulate at this time - or ever - given his history of a known unhealed jejunal ulcer, gastroccult positivity, anemia requiring 2 units of pRBCs overnight. Await Zio patch and echo read. No longer needs cardizem gtt. Will write prn lopressor for SVT if recurs. Keep sedated. Treat SBO. (3) Alcohol withdrawal: Status: Acute Assessment and plan: Read above - intubated, on propofol. (4) Small bowel obstruction: Status: Acute Assessment and plan: clinically not improving. S/p NGT. Defer to surgical service whose plan at this time is to transfer to [facility]. (5) Elevated troponin: Status: Acute Assessment and plan: Probably indicator of slight cardiac strain, not a true NSTEMI/ACS. Await echo read. Monitor in the ICU. HEATHER is contraindicated regardless given nonhealing jejunal ulcer. Would eventually benefit from outpatient ischemic workup once the acute surgical issues have resolved. (6) Hypomagnesemia: Status: Resolved Assessment and plan: Recheck in am (7) Elevated serum GGT level: Status: Acute Assessment and plan: In light of alcoholic liver disease, I do not think this represents true liver failure. GGT is 421, down from 803 yesterday. Discriminant function score 2.9 - good prognosis. (8) Lactic acidosis: Status: Resolved Assessment and plan: Multifactorial: due to Afib, dehydration, alcoholic liver disease, bowel obstruction, hypoxemia. Resolved. Continue IVF. 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 Patient noncompliant with carafate. Did require 2 units pRBCs yesterday. Given anemia and gastroccult positivity, will likely need an EGD on this admission - preferably at a tertiary care facility where his anatomy is known. Continue PPI. Monitor for gross GI bleeding. (10) DVT prophylaxis: Status: Acute Assessment and plan: lovenox never given and now d/c'ed. On TEDs/SCDs. Chemical DVT ppx is contraindicated in setting of acute GI bleeding. (11) Discharge planning issues: Status: Acute Assessment and plan: Total Critical Care Time 50 minutes. Recommend/agree with decision to transfer to a tertiary care facility for higher level of care. Subjective Subjective Interval history since last seen: Remains, intubated, sedated with propofol, arousable to verbal and painful stimuli. S/p L Subclav[place] CVL yesterday post-intubation. On the monitor, Burst of SVT, APCs, Sinus arrhythmia. O2 requirement being dropped to RA this morning. MAP>60 overnight, but borderline. Abdomen very tender this am and more distended 2 units given last night. No actual bleeding noted. Gastroccult positive, however. UOP minimal overnight. Transfer to [facility] is being planned. Exam Narrative Exam Narrative: General: Middle-aged male, intubated, sedated, arousable to both verbal and painful stimuli, otherwise appears comfortable. HEENT: opens eyes to verbal/painful stimuli, EOMI, dry MM, NG/ET tubes in place; L subclavian IJ - site c/d/i Cardiovascular: RRR, no m/r/g Lungs: CTAB, ventilator respiratory sounds Gastrointestinal: soft, but more distended than yesterday, and visible TTP - the patient grimaces Genitourinary: delgado in place Extremities: no edema BLE's, +1 pedal pulses B, TEDS/SCDs on Objective Objective Clinical Data: Abnormal lab results 05/20/20 05/20/20 05/20/20 Range/Units 09:56 09:56 09:56 WBC (4.4-10.8) k/cumm RBC (4.50-6.00) m/cumm Hgb (13.5-17.5) g/dL Hct (40.0-50.0) % MCV (80-95) fL MCH (27.0-33.0) pg RDW (11.8-14.1) % Absolute Neutrophils (1.2-6.7) k/cumm Absolute Lymphocytes (1.2-3.4) k/cumm Absolute Monocytes (0.11-0.7) k/cumm PT (9.3-11.0) sec D-Dimer 929 H (<500) ng/mlFEU ABG pH (7.35-7.45) ABG pCO2 (34-47) mmHg ABG pO2 (83-108) mmHg ABG O2 Saturation (94-98) % Potassium (3.5-5.1) mmol/L Anion Gap (3-11) mmol/L BUN (7-18) mg/dL Glucose 156 H (74-106) mg/dL Hemoglobin A1c 5.9 H (3.8-5.6) % Lactate (0.6-1.4) mmol/L Calcium 6.5 L (8.5-10.1) mg/dL Magnesium 0.9 L (1.8-2.4) mg/dL Iron (65-175) ug/dL TIBC (250-450) ug/dL Ferritin (26-388) ng/mL Total Bilirubin 1.6 H (0.2-1.0) mg/dL Conjugated Bilirubin (0.00-0.20) mg/dL GGT (15-85) U/L AST 46 H (15-37) U/L Alkaline Phosphatase 205 H (46-116) U/L Troponin I (<0.06) ng/mL Total Protein 5.4 L (6.4-8.2) g/dL Albumin 2.3 L (3.4-5.0) g/dL Urine Protein (Negative) mg/dL Urine Blood (Negative) Urine RBC (0-2) HPF Crossmatch 05/20/20 05/20/20 05/20/20 Range/Units 09:56 09:56 09:56 WBC (4.4-10.8) k/cumm RBC (4.50-6.00) m/cumm Hgb (13.5-17.5) g/dL Hct (40.0-50.0) % MCV (80-95) fL MCH (27.0-33.0) pg RDW (11.8-14.1) % Absolute Neutrophils (1.2-6.7) k/cumm Absolute Lymphocytes (1.2-3.4) k/cumm Absolute Monocytes (0.11-0.7) k/cumm PT (9.3-11.0) sec D-Dimer (<500) ng/mlFEU ABG pH (7.35-7.45) ABG pCO2 (34-47) mmHg ABG pO2 (83-108) mmHg ABG O2 Saturation (94-98) % Potassium (3.5-5.1) mmol/L Anion Gap (3-11) mmol/L BUN (7-18) mg/dL Glucose (74-106) mg/dL Hemoglobin A1c (3.8-5.6) % Lactate 1.8 H (0.6-1.4) mmol/L Calcium (8.5-10.1) mg/dL Magnesium (1.8-2.4) mg/dL Iron (65-175) ug/dL TIBC (250-450) ug/dL Ferritin (26-388) ng/mL Total Bilirubin (0.2-1.0) mg/dL Conjugated Bilirubin (0.00-0.20) mg/dL GGT 803 H (15-85) U/L AST (15-37) U/L Alkaline Phosphatase (46-116) U/L Troponin I 0.08 H* (<0.06) ng/mL Total Protein (6.4-8.2) g/dL Albumin (3.4-5.0) g/dL Urine Protein (Negative) mg/dL Urine Blood (Negative) Urine RBC (0-2) HPF Crossmatch 05/20/20 05/20/20 05/20/20 Range/Units 09:56 09:56 13:34 WBC (4.4-10.8) k/cumm RBC (4.50-6.00) m/cumm Hgb (13.5-17.5) g/dL Hct (40.0-50.0) % MCV (80-95) fL MCH (27.0-33.0) pg RDW (11.8-14.1) % Absolute Neutrophils (1.2-6.7) k/cumm Absolute Lymphocytes (1.2-3.4) k/cumm Absolute Monocytes (0.11-0.7) k/cumm PT (9.3-11.0) sec D-Dimer (<500) ng/mlFEU ABG pH 7.20 L (7.35-7.45) ABG pCO2 67 H* (34-47) mmHg ABG pO2 137 H (83-108) mmHg ABG O2 Saturation > 99 H (94-98) % Potassium (3.5-5.1) mmol/L Anion Gap (3-11) mmol/L BUN (7-18) mg/dL Glucose (74-106) mg/dL Hemoglobin A1c (3.8-5.6) % Lactate (0.6-1.4) mmol/L Calcium (8.5-10.1) mg/dL Magnesium (1.8-2.4) mg/dL Iron 34 L (65-175) ug/dL TIBC 122 L (250-450) ug/dL Ferritin 554 H (26-388) ng/mL Total Bilirubin (0.2-1.0) mg/dL Conjugated Bilirubin (0.00-0.20) mg/dL GGT (15-85) U/L AST (15-37) U/L Alkaline Phosphatase (46-116) U/L Troponin I (<0.06) ng/mL Total Protein (6.4-8.2) g/dL Albumin (3.4-5.0) g/dL Urine Protein (Negative) mg/dL Urine Blood (Negative) Urine RBC (0-2) HPF Crossmatch 05/20/20 05/20/20 05/20/20 Range/Units 13:50 13:50 13:50 WBC 13.01 H (4.4-10.8) k/cumm RBC 3.11 L (4.50-6.00) m/cumm Hgb 10.7 L (13.5-17.5) g/dL Hct 33.3 L (40.0-50.0) % MCV 107.1 H (80-95) fL MCH 34.4 H (27.0-33.0) pg RDW 14.2 H (11.8-14.1) % Absolute Neutrophils 11.96 H (1.2-6.7) k/cumm Absolute Lymphocytes 0.42 L (1.2-3.4) k/cumm Absolute Monocytes (0.11-0.7) k/cumm PT 11.3 H (9.3-11.0) sec D-Dimer (<500) ng/mlFEU ABG pH (7.35-7.45) ABG pCO2 (34-47) mmHg ABG pO2 (83-108) mmHg ABG O2 Saturation (94-98) % Potassium 3.4 L (3.5-5.1) mmol/L Anion Gap 11.4 H (3-11) mmol/L BUN 19 H (7-18) mg/dL Glucose 184 H (74-106) mg/dL Hemoglobin A1c (3.8-5.6) % Lactate (0.6-1.4) mmol/L Calcium 6.5 L (8.5-10.1) mg/dL Magnesium (1.8-2.4) mg/dL Iron (65-175) ug/dL TIBC (250-450) ug/dL Ferritin (26-388) ng/mL Total Bilirubin (0.2-1.0) mg/dL Conjugated Bilirubin (0.00-0.20) mg/dL GGT (15-85) U/L AST (15-37) U/L Alkaline Phosphatase (46-116) U/L Troponin I 0.08 H* (<0.06) ng/mL Total Protein (6.4-8.2) g/dL Albumin (3.4-5.0) g/dL Urine Protein (Negative) mg/dL Urine Blood (Negative) Urine RBC (0-2) HPF Crossmatch 05/20/20 05/20/20 05/20/20 Range/Units 13:50 13:50 16:42 WBC (4.4-10.8) k/cumm RBC (4.50-6.00) m/cumm Hgb (13.5-17.5) g/dL Hct (40.0-50.0) % MCV (80-95) fL MCH (27.0-33.0) pg RDW (11.8-14.1) % Absolute Neutrophils (1.2-6.7) k/cumm Absolute Lymphocytes (1.2-3.4) k/cumm Absolute Monocytes (0.11-0.7) k/cumm PT (9.3-11.0) sec D-Dimer (<500) ng/mlFEU ABG pH 7.22 L (7.35-7.45) ABG pCO2 63 H* (34-47) mmHg ABG pO2 155 H (83-108) mmHg ABG O2 Saturation > 99 H (94-98) % Potassium (3.5-5.1) mmol/L Anion Gap (3-11) mmol/L BUN (7-18) mg/dL Glucose (74-106) mg/dL Hemoglobin A1c (3.8-5.6) % Lactate 3.3 H* (0.6-1.4) mmol/L Calcium (8.5-10.1) mg/dL Magnesium (1.8-2.4) mg/dL Iron (65-175) ug/dL TIBC (250-450) ug/dL Ferritin (26-388) ng/mL Total Bilirubin (0.2-1.0) mg/dL Conjugated Bilirubin 0.51 H (0.00-0.20) mg/dL GGT (15-85) U/L AST 41 H (15-37) U/L Alkaline Phosphatase 190 H (46-116) U/L Troponin I (<0.06) ng/mL Total Protein 5.2 L (6.4-8.2) g/dL Albumin 2.2 L (3.4-5.0) g/dL Urine Protein (Negative) mg/dL Urine Blood (Negative) Urine RBC (0-2) HPF Crossmatch 05/20/20 05/20/20 05/20/20 Range/Units 17:32 17:32 17:32 WBC 11.82 H (4.4-10.8) k/cumm RBC 2.41 L (4.50-6.00) m/cumm Hgb 8.4 L D (13.5-17.5) g/dL Hct 25.8 L D (40.0-50.0) % MCV 107.1 H (80-95) fL MCH 34.9 H (27.0-33.0) pg RDW (11.8-14.1) % Absolute Neutrophils 10.78 H (1.2-6.7) k/cumm Absolute Lymphocytes 0.28 L (1.2-3.4) k/cumm Absolute Monocytes 0.71 H (0.11-0.7) k/cumm PT (9.3-11.0) sec D-Dimer (<500) ng/mlFEU ABG pH (7.35-7.45) ABG pCO2 (34-47) mmHg ABG pO2 (83-108) mmHg ABG O2 Saturation (94-98) % Potassium (3.5-5.1) mmol/L Anion Gap (3-11) mmol/L BUN (7-18) mg/dL Glucose (74-106) mg/dL Hemoglobin A1c (3.8-5.6) % Lactate 3.4 H* (0.6-1.4) mmol/L Calcium (8.5-10.1) mg/dL Magnesium (1.8-2.4) mg/dL Iron (65-175) ug/dL TIBC (250-450) ug/dL Ferritin (26-388) ng/mL Total Bilirubin (0.2-1.0) mg/dL Conjugated Bilirubin (0.00-0.20) mg/dL GGT (15-85) U/L AST (15-37) U/L Alkaline Phosphatase (46-116) U/L Troponin I (<0.06) ng/mL Total Protein (6.4-8.2) g/dL Albumin (3.4-5.0) g/dL Urine Protein (Negative) mg/dL Urine Blood (Negative) Urine RBC (0-2) HPF Crossmatch See Detail 05/20/20 05/20/20 05/20/20 Range/Units 17:44 18:44 19:10 WBC (4.4-10.8) k/cumm RBC (4.50-6.00) m/cumm Hgb (13.5-17.5) g/dL Hct (40.0-50.0) % MCV (80-95) fL MCH (27.0-33.0) pg RDW (11.8-14.1) % Absolute Neutrophils (1.2-6.7) k/cumm Absolute Lymphocytes (1.2-3.4) k/cumm Absolute Monocytes (0.11-0.7) k/cumm PT (9.3-11.0) sec D-Dimer (<500) ng/mlFEU ABG pH 7.29 L 7.34 L (7.35-7.45) ABG pCO2 53 H (34-47) mmHg ABG pO2 (83-108) mmHg ABG O2 Saturation (94-98) % Potassium (3.5-5.1) mmol/L Anion Gap (3-11) mmol/L BUN (7-18) mg/dL Glucose (74-106) mg/dL Hemoglobin A1c (3.8-5.6) % Lactate (0.6-1.4) mmol/L Calcium (8.5-10.1) mg/dL Magnesium (1.8-2.4) mg/dL Iron (65-175) ug/dL TIBC (250-450) ug/dL Ferritin (26-388) ng/mL Total Bilirubin (0.2-1.0) mg/dL Conjugated Bilirubin (0.00-0.20) mg/dL GGT (15-85) U/L AST (15-37) U/L Alkaline Phosphatase (46-116) U/L Troponin I (<0.06) ng/mL Total Protein (6.4-8.2) g/dL Albumin (3.4-5.0) g/dL Urine Protein 30 H (Negative) mg/dL Urine Blood Large H (Negative) Urine RBC >50 H (0-2) HPF Crossmatch 05/21/20 05/21/20 Range/Units 06:05 06:05 WBC 13.56 H (4.4-10.8) k/cumm RBC 3.43 L (4.50-6.00) m/cumm Hgb 11.4 L D (13.5-17.5) g/dL Hct 34.6 L D (40.0-50.0) % MCV 100.9 H D (80-95) fL MCH 33.2 H (27.0-33.0) pg RDW 15.8 H (11.8-14.1) % Absolute Neutrophils 12.22 H (1.2-6.7) k/cumm Absolute Lymphocytes 0.38 L (1.2-3.4) k/cumm Absolute Monocytes 0.89 H (0.11-0.7) k/cumm PT (9.3-11.0) sec D-Dimer (<500) ng/mlFEU ABG pH (7.35-7.45) ABG pCO2 (34-47) mmHg ABG pO2 (83-108) mmHg ABG O2 Saturation (94-98) % Potassium (3.5-5.1) mmol/L Anion Gap (3-11) mmol/L BUN (7-18) mg/dL Glucose 135 H (74-106) mg/dL Hemoglobin A1c (3.8-5.6) % Lactate (0.6-1.4) mmol/L Calcium 6.7 L (8.5-10.1) mg/dL Magnesium (1.8-2.4) mg/dL Iron (65-175) ug/dL TIBC (250-450) ug/dL Ferritin (26-388) ng/mL Total Bilirubin 1.5 H (0.2-1.0) mg/dL Conjugated Bilirubin (0.00-0.20) mg/dL GGT (15-85) U/L AST (15-37) U/L Alkaline Phosphatase 134 H (46-116) U/L Troponin I (<0.06) ng/mL Total Protein 4.2 L (6.4-8.2) g/dL Albumin 1.6 L (3.4-5.0) g/dL Urine Protein (Negative) mg/dL Urine Blood (Negative) Urine RBC (0-2) HPF Crossmatch Vital Signs Temperature 36.4 C L 05/21/20 05:26 Temperature Source Temporal Artery Scan 05/21/20 05:26 Pulse 86 05/21/20 03:37 Pulse 91 H 05/21/20 03:40 Respiratory Rate 21 05/21/20 06:50 Respiratory Effort 05/21/20 05:26 Respiratory Depth Normal 05/21/20 05:26 Respiratory Pattern Normal 05/21/20 05:26 Blood Pressure 92/68 L 05/21/20 03:37 Blood Pressure Mean 74 05/21/20 03:37 Blood Pressure Position Supine 05/20/20 16:45 Pulse Oximetry 98 05/21/20 06:50 Respiratory End-tidal CO2 30 05/21/20 06:50 Oxygen Delivery Method Mechanical Ventilator 05/21/20 03:00 Oxygen Flow Rate 0 05/21/20 03:00 Fraction of Inspired Oxygen (FIO2) 30 05/21/20 06:50 Pain Level 7 05/20/20 12:25 Intake & Output 05/20/20 05/20/20 05/21/20 11:59 23:59 11:59 Intake Total 3147.145 / 3147.145 1942.354 / 1942.354 Output Total 345 / 345 325 / 325 Balance 2802.145 / 2802.145 1617.354 / 1617.354 Weight 60.6 kg 60.6 kg 59 kg Intake: IV 3147.145 / 3147.145 1142.354 / 1142.354 Blood Product 0 / 0 800 / 800 Rbc Leuko Reduced Unit 0 / 0 500 / 500 [id number] Rbc Leuko Reduced Unit 300 / 300 [id number] Output: Gastric Drainage Left Nare Urine 325 / 325 300 / 300 Other: Urine Color Dark Haylee Yellow Urine Appearance Clear Clear Urine Odor Strong Comment Delgado draining dark haylee urine. Gastric Occult Blood Left Nare Positive Voiding Methods Indwelling Catheter Laboratory Results WBC 13.56 k/cumm (4.4-10.8) H 05/21/20 06:05 RBC 3.43 m/cumm (4.50-6.00) L 05/21/20 06:05 Hgb 11.4 g/dL (13.5-17.5) L D 05/21/20 06:05 Hct 34.6 % (40.0-50.0) L D 05/21/20 06:05 MCV 100.9 fL (80-95) H D 05/21/20 06:05 MCH 33.2 pg (27.0-33.0) H 05/21/20 06:05 MCHC 32.9 g/dL (32.0-36.0) 05/21/20 06:05 RDW 15.8 % (11.8-14.1) H 05/21/20 06:05 Plt Count 256 x1000/uL (130-400) 05/21/20 06:05 MPV 11.0 fL (8.0-11.0) 05/21/20 06:05 Immature Gran % 0.4 % 05/21/20 06:05 Neutrophils % 90.1 05/21/20 06:05 Lymphocytes % 2.8 05/21/20 06:05 Monocytes % 6.6 05/21/20 06:05 Eosinophils % 0.1 05/21/20 06:05 Basophils % 0.0 05/21/20 06:05 Absolute Neutrophils 12.22 k/cumm (1.2-6.7) H 05/21/20 06:05 Absolute Lymphocytes 0.38 k/cumm (1.2-3.4) L 05/21/20 06:05 Absolute Monocytes 0.89 k/cumm (0.11-0.7) H 05/21/20 06:05 Absolute Eosinophils 0.01 k/cumm (0.0-0.7) 05/21/20 06:05 Absolute Basophils 0.00 k/cumm (0.0-0.2) 05/21/20 06:05 Differential Comment Rbc morph reviewed 05/20/20 17:32 RBC Morphology See below 05/20/20 17:32 Polychromasia Present 05/20/20 13:50 Poikilocytosis 1+ 05/20/20 13:50 Anisocytosis 1+ 05/20/20 13:50 Macrocytosis 2+ 05/20/20 17:32 PT Cancelled 05/20/20 14:10 INR Cancelled 05/20/20 14:10 D-Dimer 929 ng/mlFEU (<500) H 05/20/20 09:56 ABG Sample Site Right radial 05/21/20 07:47 ABG pH 7.36 (7.35-7.45) 05/21/20 07:47 ABG pCO2 46 mmHg (34-47) 05/21/20 07:47 ABG pO2 102 mmHg (83-108) 05/21/20 07:47 ABG HCO3 26 mmol/L (22-28) 05/21/20 07:47 ABG Total CO2 24 mmol/L (22-29) 05/21/20 07:47 ABG O2 Saturation 98 % (94-98) 05/21/20 07:47 ABG Base Excess 0.4 mmol/L (-3-3) 05/21/20 07:47 Oxygen Liter Flow Vc 350/20/5 L 05/21/20 07:47 FiO2 30 % 05/21/20 07:47 Sodium 138 mmol/L (136-145) 05/21/20 06:05 Sodium Cancelled 05/21/20 06:05 Potassium 3.9 mmol/L (3.5-5.1) 05/21/20 06:05 Potassium Cancelled 05/21/20 06:05 Chloride 106 mmol/L (98-107) 05/21/20 06:05 Chloride Cancelled 05/21/20 06:05 Carbon Dioxide 26.2 mmol/L (21.0-32.0) 05/21/20 06:05 Carbon Dioxide Cancelled 05/21/20 06:05 Anion Gap 5.8 mmol/L (3-11) 05/21/20 06:05 Anion Gap Cancelled 05/21/20 06:05 BUN 16 mg/dL (7-18) 05/21/20 06:05 BUN Cancelled 05/21/20 06:05 Creatinine 0.97 mg/dL (0.70-1.30) 05/21/20 06:05 Creatinine Cancelled 05/21/20 06:05 Estimated GFR/1.73 m2 >= 60.00 (mL/min/1.73m2) 05/21/20 06:05 Estimated GFR/1.73 m2 Cancelled 05/21/20 06:05 Glucose 135 mg/dL (74-106) H 05/21/20 06:05 Glucose Cancelled 05/21/20 06:05 Hemoglobin A1c 5.9 % (3.8-5.6) H 05/20/20 09:56 Lactate 1.0 mmol/L (0.6-1.4) 05/21/20 07:50 Calcium 6.7 mg/dL (8.5-10.1) L 05/21/20 06:05 Calcium Cancelled 05/21/20 06:05 Magnesium 2.4 mg/dL (1.8-2.4) 05/21/20 06:05 Iron 34 ug/dL (65-175) L 05/20/20 09:56 TIBC 122 ug/dL (250-450) L 05/20/20 09:56 Transferrin % Sat 28 % (20-55) 05/20/20 09:56 Ferritin 554 ng/mL (26-388) H 05/20/20 09:56 Total Bilirubin 1.5 mg/dL (0.2-1.0) H 05/21/20 06:05 Conjugated Bilirubin 0.51 mg/dL (0.00-0.20) H 05/20/20 13:50 GGT 803 U/L (15-85) H 05/20/20 09:56 AST 31 U/L (15-37) 05/21/20 06:05 ALT 22 U/L (16-63) 05/21/20 06:05 Alkaline Phosphatase 134 U/L (46-116) H 05/21/20 06:05 Troponin I Cancelled 05/20/20 15:00 Total Protein 4.2 g/dL (6.4-8.2) L 05/21/20 06:05 Albumin 1.6 g/dL (3.4-5.0) L 05/21/20 06:05 Urine Color Yellow (Yellow) 05/20/20 19:10 Urine Clarity Clear (Clear) 05/20/20 19:10 Urine pH 5.5 (5-8) 05/20/20 19:10 Ur Specific [place] 1.025 (1.005-1.025) 05/20/20 19:10 Urine Protein 30 mg/dL (Negative) H 05/20/20 19:10 Urine Ketones Negative mg/dL (Negative) 05/20/20 19:10 Urine Blood Large (Negative) H 05/20/20 19:10 Urine Nitrite Negative (Negative) 05/20/20 19:10 Urine Bilirubin Negative (Negative) 05/20/20 19:10 Urine Urobilinogen 0.2 EU/dL (Up TO 0.2) 05/20/20 19:10 Ur Leukocyte Esterase Negative (Negative) 05/20/20 19:10 Urine RBC >50 HPF (0-2) H 05/20/20 19:10 Urine WBC 3-5 HPF (0-5) 05/20/20 19:10 Ur Epithelial Cells Few HPF (Negative) 05/20/20 19:10 Urine Crystals Few uric acid HPF (Negative) 05/20/20 19:10 Urine Bacteria Few HPF (Negative) 05/20/20 19:10 Urine Casts 3-5 coarse granular LPF (Negative) 05/20/20 19:10 Urine Mucus Negative (Negative) 05/20/20 19:10 Ur Culture Indicated? C&s done as ordered 05/20/20 19:10 Urine Glucose Negative mg/dL (Negative) 05/20/20 19:10 Patient ABO/Rh O Positive 05/20/20 17:32 Antibody Screen Negative 05/20/20 17:32 Crossmatch See Detail 05/20/20 17:32 CXR: NG tube extends into stomach with side port at the level of the GE junction. This should be advanced 3-5 cm to ensure stable intragastric location XR abdomen flat plate: Gas-filled single viscus in the central abdomen is a nonspecific finding. If clinical suspicion exists for bowel obstruction, CT imaging would be recommended.
--- NOTE | 2020-05-21 08:23 | PGE_ITS ---
Date of Service Date of service: 05/21/20 Time of Service: : Assessment and Plan Assessment and plan (1) BPH loc w urin obs/LUTS: Status: Acute Assessment and plan: Otoole catheter was placed yesterday with urine output in the last 12 hours Good urine output in the last 12 hours. (2) Jejunal ulcer: Status: Acute Assessment and plan: Patient's hemoglobin is stable. He has had no output from his NG tube for from his lower GI tract. There is no clinical signs of bleeding at this point. Continue on PPI although I do not know that that is affected given the patient's surgical status. He does have continues to have a bowel obstruction (3) Lactic acidosis: Status: Resolved Assessment and plan: Resolved (4) Elevated troponin: Status: Acute Assessment and plan: Resolved (5) Small bowel obstruction: Status: Acute Assessment and plan: Patient continued seems to have signs of small bowel obstruction. We will continue with conservative medical management at this point. He is not a candidate for surgery at [facility]. If it does not resolve in the next 12 hours then he will be transferred to [facility] for further surgical co nsideration and care. 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 He does have SCDs in place. He is normally on Carafate but he cannot take this because of the bowel obstruction -Patient is at high risk of nutritional complications given his poor albumin. He will need to be started on TPN -Patient's overall prognosis is very poor. However patient has had significant medical problems and complications and has rebounded from prior disease processes -Did discuss the patient's case with aysha during morning rounds. Again the patient is currently stable on the ventilator. Patient is not a surgical candidate for [facility] And would require transfer to [facility] if he needs surgery. Continue with conservative medical management 30 minutes spent in critical care time (6) Alcohol withdrawal: Status: Acute Assessment and plan: Patient continues to withdrawal from alcohol. Is intubated and sedated on the vent. He was intubated yesterday for airway protection. Is stable and no signs of VAPs. Continue with appropriate prophylaxis (7) Acute respiratory failure with hypoxia and hypercapnia: Status: Acute Assessment and plan: Resolved. Stable on ventilator. Please see internal medicine notes for ventilator update. (8) Rapid atrial fibrillation: Status: Suspected Assessment and plan: resolved currently off Ca channel karan Subjective Subjective Interval history since last seen: Patient seen and examined at 7 AM today and reviewed patient's progress throughout the night with nursing. He had better urine output over the night. Is a light allen color today. He had no fevers overnight. He remains sedated and stable on ventilator. GI_He has had nothing appreciable out his NG tube in the last 12 hours, latest x-ray tip is at the GE junction we will advance this. Specifically he has had no appreciable blood. He is not passing any gas or has passed any blood from the rectum. HEENT-he remains intubated and sedated on the vent. No eye drainage or redness. No signs of sinusitis or dental abscesses. NG tube and is noted on x-ray. ET tube is in good position. cardiac-his blood pressure is are better today. He systolics are in the 100s. He was he is off the Cardizem drip and heart rate is in the 90s and he is currently in normal sinus. renal-no urine output. Electrolytes adjusted Exam Const General: patient mechanically ventilated [facility] Head: normal to inspection Face and sinus: sinuses nontender Mouth: moist mucous membranes Teeth and gingiva: poor dentition Eyes Sclera: sclerae normal Neck Other: no jvd line site c/d/i. Chest Chest: normal inspection of the chest and normal palpation of entire chest wall Resp Auscultation: clear to auscultation bilaterally Cardio Rate: regular rate Rhythm: regular rhythm Other: Normal sinus rhythm today and he is off any diltiazem or beta blockers. GI Inspection: distended and scar Auscultation: absent bowel sounds Skin General skin exam: no rashes or lesions noted Other: no breakdown Extrem General: normal to inspection and no clubbing, cyanosis or edema Objective Objective Clinical Data: Abnormal lab results 05/20/20 05/20/20 05/20/20 Range/Units 09:56 09:56 09:56 WBC (4.4-10.8) k/cumm RBC (4.50-6.00) m/cumm Hgb (13.5-17.5) g/dL Hct (40.0-50.0) % MCV (80-95) fL MCH (27.0-33.0) pg RDW (11.8-14.1) % Absolute Neutrophils (1.2-6.7) k/cumm Absolute Lymphocytes (1.2-3.4) k/cumm Absolute Monocytes (0.11-0.7) k/cumm PT (9.3-11.0) sec D-Dimer 929 H (<500) ng/mlFEU ABG pH (7.35-7.45) ABG pCO2 (34-47) mmHg ABG pO2 (83-108) mmHg ABG O2 Saturation (94-98) % Potassium (3.5-5.1) mmol/L Anion Gap (3-11) mmol/L BUN (7-18) mg/dL Glucose 156 H (74-106) mg/dL Hemoglobin A1c 5.9 H (3.8-5.6) % Lactate (0.6-1.4) mmol/L Calcium 6.5 L (8.5-10.1) mg/dL Magnesium 0.9 L (1.8-2.4) mg/dL Iron (65-175) ug/dL TIBC (250-450) ug/dL Ferritin (26-388) ng/mL Total Bilirubin 1.6 H (0.2-1.0) mg/dL Conjugated Bilirubin (0.00-0.20) mg/dL GGT (15-85) U/L AST 46 H (15-37) U/L Alkaline Phosphatase 205 H (46-116) U/L Troponin I (<0.06) ng/mL Total Protein 5.4 L (6.4-8.2) g/dL Albumin 2.3 L (3.4-5.0) g/dL Urine Protein (Negative) mg/dL Urine Blood (Negative) Urine RBC (0-2) HPF Crossmatch 05/20/20 05/20/20 05/20/20 Range/Units 09:56 09:56 09:56 WBC (4.4-10.8) k/cumm RBC (4.50-6.00) m/cumm Hgb (13.5-17.5) g/dL Hct (40.0-50.0) % MCV (80-95) fL MCH (27.0-33.0) pg RDW (11.8-14.1) % Absolute Neutrophils (1.2-6.7) k/cumm Absolute Lymphocytes (1.2-3.4) k/cumm Absolute Monocytes (0.11-0.7) k/cumm PT (9.3-11.0) sec D-Dimer (<500) ng/mlFEU ABG pH (7.35-7.45) ABG pCO2 (34-47) mmHg ABG pO2 (83-108) mmHg ABG O2 Saturation (94-98) % Potassium (3.5-5.1) mmol/L Anion Gap (3-11) mmol/L BUN (7-18) mg/dL Glucose (74-106) mg/dL Hemoglobin A1c (3.8-5.6) % Lactate 1.8 H (0.6-1.4) mmol/L Calcium (8.5-10.1) mg/dL Magnesium (1.8-2.4) mg/dL Iron (65-175) ug/dL TIBC (250-450) ug/dL Ferritin (26-388) ng/mL Total Bilirubin (0.2-1.0) mg/dL Conjugated Bilirubin (0.00-0.20) mg/dL GGT 803 H (15-85) U/L AST (15-37) U/L Alkaline Phosphatase (46-116) U/L Troponin I 0.08 H* (<0.06) ng/mL Total Protein (6.4-8.2) g/dL Albumin (3.4-5.0) g/dL Urine Protein (Negative) mg/dL Urine Blood (Negative) Urine RBC (0-2) HPF Crossmatch 05/20/20 05/20/20 05/20/20 Range/Units 09:56 09:56 13:34 WBC (4.4-10.8) k/cumm RBC (4.50-6.00) m/cumm Hgb (13.5-17.5) g/dL Hct (40.0-50.0) % MCV (80-95) fL MCH (27.0-33.0) pg RDW (11.8-14.1) % Absolute Neutrophils (1.2-6.7) k/cumm Absolute Lymphocytes (1.2-3.4) k/cumm Absolute Monocytes (0.11-0.7) k/cumm PT (9.3-11.0) sec D-Dimer (<500) ng/mlFEU ABG pH 7.20 L (7.35-7.45) ABG pCO2 67 H* (34-47) mmHg ABG pO2 137 H (83-108) mmHg ABG O2 Saturation > 99 H (94-98) % Potassium (3.5-5.1) mmol/L Anion Gap (3-11) mmol/L BUN (7-18) mg/dL Glucose (74-106) mg/dL Hemoglobin A1c (3.8-5.6) % Lactate (0.6-1.4) mmol/L Calcium (8.5-10.1) mg/dL Magnesium (1.8-2.4) mg/dL Iron 34 L (65-175) ug/dL TIBC 122 L (250-450) ug/dL Ferritin 554 H (26-388) ng/mL Total Bilirubin (0.2-1.0) mg/dL Conjugated Bilirubin (0.00-0.20) mg/dL GGT (15-85) U/L AST (15-37) U/L Alkaline Phosphatase (46-116) U/L Troponin I (<0.06) ng/mL Total Protein (6.4-8.2) g/dL Albumin (3.4-5.0) g/dL Urine Protein (Negative) mg/dL Urine Blood (Negative) Urine RBC (0-2) HPF Crossmatch 05/20/20 05/20/20 05/20/20 Range/Units 13:50 13:50 13:50 WBC 13.01 H (4.4-10.8) k/cumm RBC 3.11 L (4.50-6.00) m/cumm Hgb 10.7 L (13.5-17.5) g/dL Hct 33.3 L (40.0-50.0) % MCV 107.1 H (80-95) fL MCH 34.4 H (27.0-33.0) pg RDW 14.2 H (11.8-14.1) % Absolute Neutrophils 11.96 H (1.2-6.7) k/cumm Absolute Lymphocytes 0.42 L (1.2-3.4) k/cumm Absolute Monocytes (0.11-0.7) k/cumm PT 11.3 H (9.3-11.0) sec D-Dimer (<500) ng/mlFEU ABG pH (7.35-7.45) ABG pCO2 (34-47) mmHg ABG pO2 (83-108) mmHg ABG O2 Saturation (94-98) % Potassium 3.4 L (3.5-5.1) mmol/L Anion Gap 11.4 H (3-11) mmol/L BUN 19 H (7-18) mg/dL Glucose 184 H (74-106) mg/dL Hemoglobin A1c (3.8-5.6) % Lactate (0.6-1.4) mmol/L Calcium 6.5 L (8.5-10.1) mg/dL Magnesium (1.8-2.4) mg/dL Iron (65-175) ug/dL TIBC (250-450) ug/dL Ferritin (26-388) ng/mL Total Bilirubin (0.2-1.0) mg/dL Conjugated Bilirubin (0.00-0.20) mg/dL GGT (15-85) U/L AST (15-37) U/L Alkaline Phosphatase (46-116) U/L Troponin I 0.08 H* (<0.06) ng/mL Total Protein (6.4-8.2) g/dL Albumin (3.4-5.0) g/dL Urine Protein (Negative) mg/dL Urine Blood (Negative) Urine RBC (0-2) HPF Crossmatch 05/20/20 05/20/20 05/20/20 Range/Units 13:50 13:50 16:42 WBC (4.4-10.8) k/cumm RBC (4.50-6.00) m/cumm Hgb (13.5-17.5) g/dL Hct (40.0-50.0) % MCV (80-95) fL MCH (27.0-33.0) pg RDW (11.8-14.1) % Absolute Neutrophils (1.2-6.7) k/cumm Absolute Lymphocytes (1.2-3.4) k/cumm Absolute Monocytes (0.11-0.7) k/cumm PT (9.3-11.0) sec D-Dimer (<500) ng/mlFEU ABG pH 7.22 L (7.35-7.45) ABG pCO2 63 H* (34-47) mmHg ABG pO2 155 H (83-108) mmHg ABG O2 Saturation > 99 H (94-98) % Potassium (3.5-5.1) mmol/L Anion Gap (3-11) mmol/L BUN (7-18) mg/dL Glucose (74-106) mg/dL Hemoglobin A1c (3.8-5.6) % Lactate 3.3 H* (0.6-1.4) mmol/L Calcium (8.5-10.1) mg/dL Magnesium (1.8-2.4) mg/dL Iron (65-175) ug/dL TIBC (250-450) ug/dL Ferritin (26-388) ng/mL Total Bilirubin (0.2-1.0) mg/dL Conjugated Bilirubin 0.51 H (0.00-0.20) mg/dL GGT (15-85) U/L AST 41 H (15-37) U/L Alkaline Phosphatase 190 H (46-116) U/L Troponin I (<0.06) ng/mL Total Protein 5.2 L (6.4-8.2) g/dL Albumin 2.2 L (3.4-5.0) g/dL Urine Protein (Negative) mg/dL Urine Blood (Negative) Urine RBC (0-2) HPF Crossmatch 05/20/20 05/20/20 05/20/20 Range/Units 17:32 17:32 17:32 WBC 11.82 H (4.4-10.8) k/cumm RBC 2.41 L (4.50-6.00) m/cumm Hgb 8.4 L D (13.5-17.5) g/dL Hct 25.8 L D (40.0-50.0) % MCV 107.1 H (80-95) fL MCH 34.9 H (27.0-33.0) pg RDW (11.8-14.1) % Absolute Neutrophils 10.78 H (1.2-6.7) k/cumm Absolute Lymphocytes 0.28 L (1.2-3.4) k/cumm Absolute Monocytes 0.71 H (0.11-0.7) k/cumm PT (9.3-11.0) sec D-Dimer (<500) ng/mlFEU ABG pH (7.35-7.45) ABG pCO2 (34-47) mmHg ABG pO2 (83-108) mmHg ABG O2 Saturation (94-98) % Potassium (3.5-5.1) mmol/L Anion Gap (3-11) mmol/L BUN (7-18) mg/dL Glucose (74-106) mg/dL Hemoglobin A1c (3.8-5.6) % Lactate 3.4 H* (0.6-1.4) mmol/L Calcium (8.5-10.1) mg/dL Magnesium (1.8-2.4) mg/dL Iron (65-175) ug/dL TIBC (250-450) ug/dL Ferritin (26-388) ng/mL Total Bilirubin (0.2-1.0) mg/dL Conjugated Bilirubin (0.00-0.20) mg/dL GGT (15-85) U/L AST (15-37) U/L Alkaline Phosphatase (46-116) U/L Troponin I (<0.06) ng/mL Total Protein (6.4-8.2) g/dL Albumin (3.4-5.0) g/dL Urine Protein (Negative) mg/dL Urine Blood (Negative) Urine RBC (0-2) HPF Crossmatch See Detail 05/20/20 05/20/20 05/20/20 Range/Units 17:44 18:44 19:10 WBC (4.4-10.8) k/cumm RBC (4.50-6.00) m/cumm Hgb (13.5-17.5) g/dL Hct (40.0-50.0) % MCV (80-95) fL MCH (27.0-33.0) pg RDW (11.8-14.1) % Absolute Neutrophils (1.2-6.7) k/cumm Absolute Lymphocytes (1.2-3.4) k/cumm Absolute Monocytes (0.11-0.7) k/cumm PT (9.3-11.0) sec D-Dimer (<500) ng/mlFEU ABG pH 7.29 L 7.34 L (7.35-7.45) ABG pCO2 53 H (34-47) mmHg ABG pO2 (83-108) mmHg ABG O2 Saturation (94-98) % Potassium (3.5-5.1) mmol/L Anion Gap (3-11) mmol/L BUN (7-18) mg/dL Glucose (74-106) mg/dL Hemoglobin A1c (3.8-5.6) % Lactate (0.6-1.4) mmol/L Calcium (8.5-10.1) mg/dL Magnesium (1.8-2.4) mg/dL Iron (65-175) ug/dL TIBC (250-450) ug/dL Ferritin (26-388) ng/mL Total Bilirubin (0.2-1.0) mg/dL Conjugated Bilirubin (0.00-0.20) mg/dL GGT (15-85) U/L AST (15-37) U/L Alkaline Phosphatase (46-116) U/L Troponin I (<0.06) ng/mL Total Protein (6.4-8.2) g/dL Albumin (3.4-5.0) g/dL Urine Protein 30 H (Negative) mg/dL Urine Blood Large H (Negative) Urine RBC >50 H (0-2) HPF Crossmatch 05/21/20 05/21/20 Range/Units 06:05 06:05 WBC 13.56 H (4.4-10.8) k/cumm RBC 3.43 L (4.50-6.00) m/cumm Hgb 11.4 L D (13.5-17.5) g/dL Hct 34.6 L D (40.0-50.0) % MCV 100.9 H D (80-95) fL MCH 33.2 H (27.0-33.0) pg RDW 15.8 H (11.8-14.1) % Absolute Neutrophils 12.22 H (1.2-6.7) k/cumm Absolute Lymphocytes 0.38 L (1.2-3.4) k/cumm Absolute Monocytes 0.89 H (0.11-0.7) k/cumm PT (9.3-11.0) sec D-Dimer (<500) ng/mlFEU ABG pH (7.35-7.45) ABG pCO2 (34-47) mmHg ABG pO2 (83-108) mmHg ABG O2 Saturation (94-98) % Potassium (3.5-5.1) mmol/L Anion Gap (3-11) mmol/L BUN (7-18) mg/dL Glucose 135 H (74-106) mg/dL Hemoglobin A1c (3.8-5.6) % Lactate (0.6-1.4) mmol/L Calcium 6.7 L (8.5-10.1) mg/dL Magnesium (1.8-2.4) mg/dL Iron (65-175) ug/dL TIBC (250-450) ug/dL Ferritin (26-388) ng/mL Total Bilirubin 1.5 H (0.2-1.0) mg/dL Conjugated Bilirubin (0.00-0.20) mg/dL GGT (15-85) U/L AST (15-37) U/L Alkaline Phosphatase 134 H (46-116) U/L Troponin I (<0.06) ng/mL Total Protein 4.2 L (6.4-8.2) g/dL Albumin 1.6 L (3.4-5.0) g/dL Urine Protein (Negative) mg/dL Urine Blood (Negative) Urine RBC (0-2) HPF Crossmatch Vital Signs Temperature 36.4 C L 05/21/20 05:26 Temperature Source Temporal Artery Scan 05/21/20 05:26 Pulse 86 05/21/20 03:37 Pulse 91 H 05/21/20 03:40 Respiratory Rate 21 05/21/20 06:50 Respiratory Effort 05/21/20 05:26 Respiratory Depth Normal 05/21/20 05:26 Respiratory Pattern Normal 05/21/20 05:26 Blood Pressure 92/68 L 05/21/20 03:37 Blood Pressure Mean 74 05/21/20 03:37 Blood Pressure Position Supine 05/20/20 16:45 Pulse Oximetry 98 05/21/20 06:50 Respiratory End-tidal CO2 30 05/21/20 06:50 Oxygen Delivery Method Mechanical Ventilator 05/21/20 03:00 Oxygen Flow Rate 0 05/21/20 03:00 Fraction of Inspired Oxygen (FIO2) 30 05/21/20 06:50 Pain Level 7 05/20/20 12:25 Intake & Output 05/20/20 05/20/20 05/21/20 11:59 23:59 11:59 Intake Total 3147.145 / 3147.145 1942.354 / 1942.354 Output Total 345 / 345 325 / 325 Balance 2802.145 / 2802.145 1617.354 / 1617.354 Weight 60.6 kg 60.6 kg 59 kg Intake: IV 3147.145 / 3147.145 1142.354 / 1142.354 Blood Product 0 / 0 800 / 800 Rbc Leuko Reduced Unit 0 / 0 500 / 500 [id number] Rbc Leuko Reduced Unit 300 / 300 [id number] Output: Gastric Drainage Left Nare Urine 325 / 325 300 / 300 Other: Urine Color Dark Haylee Yellow Urine Appearance Clear Clear Urine Odor Strong Comment Otoole draining dark haylee urine. Gastric Occult Blood Left Nare Positive Voiding Methods Indwelling Catheter Laboratory Results WBC 13.56 k/cumm (4.4-10.8) H 05/21/20 06:05 RBC 3.43 m/cumm (4.50-6.00) L 05/21/20 06:05 Hgb 11.4 g/dL (13.5-17.5) L D 05/21/20 06:05 Hct 34.6 % (40.0-50.0) L D 05/21/20 06:05 MCV 100.9 fL (80-95) H D 05/21/20 06:05 MCH 33.2 pg (27.0-33.0) H 05/21/20 06:05 MCHC 32.9 g/dL (32.0-36.0) 05/21/20 06:05 RDW 15.8 % (11.8-14.1) H 05/21/20 06:05 Plt Count 256 x1000/uL (130-400) 05/21/20 06:05 MPV 11.0 fL (8.0-11.0) 05/21/20 06:05 Immature Gran % 0.4 % 05/21/20 06:05 Neutrophils % 90.1 05/21/20 06:05 Lymphocytes % 2.8 05/21/20 06:05 Monocytes % 6.6 05/21/20 06:05 Eosinophils % 0.1 05/21/20 06:05 Basophils % 0.0 05/21/20 06:05 Absolute Neutrophils 12.22 k/cumm (1.2-6.7) H 05/21/20 06:05 Absolute Lymphocytes 0.38 k/cumm (1.2-3.4) L 05/21/20 06:05 Absolute Monocytes 0.89 k/cumm (0.11-0.7) H 05/21/20 06:05 Absolute Eosinophils 0.01 k/cumm (0.0-0.7) 05/21/20 06:05 Absolute Basophils 0.00 k/cumm (0.0-0.2) 05/21/20 06:05 Differential Comment Rbc morph reviewed 05/20/20 17:32 RBC Morphology See below 05/20/20 17:32 Polychromasia Present 05/20/20 13:50 Poikilocytosis 1+ 05/20/20 13:50 Anisocytosis 1+ 05/20/20 13:50 Macrocytosis 2+ 05/20/20 17:32 PT Cancelled 05/20/20 14:10 INR Cancelled 05/20/20 14:10 D-Dimer 929 ng/mlFEU (<500) H 05/20/20 09:56 ABG Sample Site Right radial 05/21/20 07:47 ABG pH 7.36 (7.35-7.45) 05/21/20 07:47 ABG pCO2 46 mmHg (34-47) 05/21/20 07:47 ABG pO2 102 mmHg (83-108) 05/21/20 07:47 ABG HCO3 26 mmol/L (22-28) 05/21/20 07:47 ABG Total CO2 24 mmol/L (22-29) 05/21/20 07:47 ABG O2 Saturation 98 % (94-98) 05/21/20 07:47 ABG Base Excess 0.4 mmol/L (-3-3) 05/21/20 07:47 Oxygen Liter Flow Vc 350/20/5 L 05/21/20 07:47 FiO2 30 % 05/21/20 07:47 Sodium 138 mmol/L (136-145) 05/21/20 06:05 Sodium Cancelled 05/21/20 06:05 Potassium 3.9 mmol/L (3.5-5.1) 05/21/20 06:05 Potassium Cancelled 05/21/20 06:05 Chloride 106 mmol/L (98-107) 05/21/20 06:05 Chloride Cancelled 05/21/20 06:05 Carbon Dioxide 26.2 mmol/L (21.0-32.0) 05/21/20 06:05 Carbon Dioxide Cancelled 05/21/20 06:05 Anion Gap 5.8 mmol/L (3-11) 05/21/20 06:05 Anion Gap Cancelled 05/21/20 06:05 BUN 16 mg/dL (7-18) 05/21/20 06:05 BUN Cancelled 05/21/20 06:05 Creatinine 0.97 mg/dL (0.70-1.30) 05/21/20 06:05 Creatinine Cancelled 05/21/20 06:05 Estimated GFR/1.73 m2 >= 60.00 (mL/min/1.73m2) 05/21/20 06:05 Estimated GFR/1.73 m2 Cancelled 05/21/20 06:05 Glucose 135 mg/dL (74-106) H 05/21/20 06:05 Glucose Cancelled 05/21/20 06:05 Hemoglobin A1c 5.9 % (3.8-5.6) H 05/20/20 09:56 Lactate 1.0 mmol/L (0.6-1.4) 05/21/20 07:50 Calcium 6.7 mg/dL (8.5-10.1) L 05/21/20 06:05 Calcium Cancelled 05/21/20 06:05 Magnesium 2.4 mg/dL (1.8-2.4) 05/21/20 06:05 Iron 34 ug/dL (65-175) L 05/20/20 09:56 TIBC 122 ug/dL (250-450) L 05/20/20 09:56 Transferrin % Sat 28 % (20-55) 05/20/20 09:56 Ferritin 554 ng/mL (26-388) H 05/20/20 09:56 Total Bilirubin 1.5 mg/dL (0.2-1.0) H 05/21/20 06:05 Conjugated Bilirubin 0.51 mg/dL (0.00-0.20) H 05/20/20 13:50 GGT 803 U/L (15-85) H 05/20/20 09:56 AST 31 U/L (15-37) 05/21/20 06:05 ALT 22 U/L (16-63) 05/21/20 06:05 Alkaline Phosphatase 134 U/L (46-116) H 05/21/20 06:05 Troponin I Cancelled 05/20/20 15:00 Total Protein 4.2 g/dL (6.4-8.2) L 05/21/20 06:05 Albumin 1.6 g/dL (3.4-5.0) L 05/21/20 06:05 Urine Color Yellow (Yellow) 05/20/20 19:10 Urine Clarity Clear (Clear) 05/20/20 19:10 Urine pH 5.5 (5-8) 05/20/20 19:10 Ur Specific Ponce 1.025 (1.005-1.025) 05/20/20 19:10 Urine Protein 30 mg/dL (Negative) H 05/20/20 19:10 Urine Ketones Negative mg/dL (Negative) 05/20/20 19:10 Urine Blood Large (Negative) H 05/20/20 19:10 Urine Nitrite Negative (Negative) 05/20/20 19:10 Urine Bilirubin Negative (Negative) 05/20/20 19:10 Urine Urobilinogen 0.2 EU/dL (Up TO 0.2) 05/20/20 19:10 Ur Leukocyte Esterase Negative (Negative) 05/20/20 19:10 Urine RBC >50 HPF (0-2) H 05/20/20 19:10 Urine WBC 3-5 HPF (0-5) 05/20/20 19:10 Ur Epithelial Cells Few HPF (Negative) 05/20/20 19:10 Urine Crystals Few uric acid HPF (Negative) 05/20/20 19:10 Urine Bacteria Few HPF (Negative) 05/20/20 19:10 Urine Casts 3-5 coarse granular LPF (Negative) 05/20/20 19:10 Urine Mucus Negative (Negative) 05/20/20 19:10 Ur Culture Indicated? C&s done as ordered 05/20/20 19:10 Urine Glucose Negative mg/dL (Negative) 05/20/20 19:10 Patient ABO/Rh O Positive 05/20/20 17:32 Antibody Screen Negative 05/20/20 17:32 Crossmatch See Detail 05/20/20 17:32
[2020-05-21 08:27] LABS: COVID-19 RT-PCR UVMMC Result Negative (Negative)
[2020-05-21 08:43] LABS: Troponin I < 0.05 ng/mL (<0.06)
[2020-05-21 08:51] LABS: GGT 421 U/L (15-85)
--- NOTE | 2020-05-21 08:51 | INITIAL_ITS ---
- If Service Date Differs Date of service: 05/21/20 Time of Service: 14:11 Care Management Initial Assess REASON FOR HOSPITALIZATION:: SBO PAST MEDICAL HISTORY/PAST SURGICAL HISTORY:: Current everyday smoker, Acute respiratory failure with hypoxia, alcohol induced acute pancreatitis, BPH loc w urine obs/LUTS, cervical spine fracture, cholangitis, chronic low back pain, COPD, depression, diastolic dysfunction, DM, essential hypertension, exocrine pancreatic insufficiency, GERD without esophagitis, hx of ETOH abuse, infarction of spleen, jejunal ulcer, narrow angle glaucoma suspect, PADDY, protien calorie malnutrition, pulmonary embolism, RLS, syncopal episode, cholecystectomy, colonoscopy, EGD, pancreatectomy, splenic rupture PREVIOUS FUNCTIONAL STATUS/SOCIAL/FAMILY SUPPORTS:: Mhoit resides in [place]. His daughter, Modesto resides in [place] as well. CURRENT FUNCTIONAL STATUS:: Willian is intubated for respiratory issues r/t ETOH withdrawal. ADVANCE DIRECTIVES:: None on file at [facility]. Has patient been provided with info about the portal/API?: No Did the patient sign up for the portal?: No CODE STATUS:: Full Code INSURANCE COVERAGE / FINANCIAL ISSUES:: [facility] CURRENT HOME/COMMUNITY SERVICES/EQUIPMENT:: Unable to attain. PRIMARY CARE PHYSICIAN:: Sher Mayo POTENTIAL DISCHARGE NEEDS:: Follow up appointments with PCP. PATIENT/FAMILY EDUCATION NEEDS:: Review discharge instructions, discuss Ask Me Three. ANTICIPATED BARRIERS TO DISCHARGE:: None identified. TRANSPORTATION:: TBD by disposition. PLAN:: Mohit continues to be intubated in the ICU and closely monitored. Anticipate Mohit will transfer to a tertiary care facility for higher level of care per provider. CM continues to follow.
[2020-05-21] MEDS: Normal Saline Flush 10 ML SYR IVP ×3 (08:52→21:39)
[2020-05-21] MEDS: Pantoprazole 40 MG VIAL IVP ×2 (08:53→21:34)
--- NOTE | 2020-05-21 09:33 | W.NUTCONSULT ---
Date of service: 05/21/20 Time of Service: 09:33 Nutritional Consult ASSESSMENT: 65 year old male admitted to ICU with SBO, jejunal ulcer s/p Whipple Surgery for chronic pancreatitis with severe ETOH withdrawl, sedated with propofol. Meds include pancreatitc enzymes, MVI, Thiamin, folic acid, Propofol 14 ml/hour providing total of 33 grams of fat. NPO. If needs surgery will be transferred to [facility]. BMI on low end of normal, suspect significant weight loss and possible Protein Joe Malnutrition s/p whipple procedure. Estimated needs: 2847-6398 kcal, 59-70 g protein. Previous weight history not available, but protein calorie malnutrition s/p whipple puts pt at risk for refeeding syndrom. To reduce risk of refeeding syndrome, recommend initiating TPN at low end of nutrient need. Will adjust TPN in view of current propofol infusion (providing 370 kcal and 33 grams of fat per day). NUTRITIONAL DIAGNOSIS: Inadequate oral intake due to NPO status/sedation INTERVENTION: TPN recommendations Dextrose 10%, Amino Acids 4.2 % in 2000 ml goal rate @ 80 cc. Start at 60cc/hour, increase by 10 cc q 4 hours until goal rate of 80 cc/hour. 20% Lipids 125 ml total (15 ml/hour x 8 hours). standard electrolytes and additives, blood sugar monitoring twice daily, daily CMP, CBC, Mg and Phos. Provides ( with propofol infusion of 14 ml/hour) total of 1640 kcal, 82 g protein, 60 g fat MONITORING AND EVALUATION: weight, labs, propofol infusion Time Spent in Nutritional Counseling and Treatment: 0 time spent face to face
[2020-05-21] MEDS: MULTIVITAMIN 10 ML, THIAMINE 100 MG, FOLIC ACID 1 MG in DEXTROSE 5%-0.45% SALINE 1,000 ML 100 ML IV (11:49)
[2020-05-21] MEDS: MORPHine 2 MG/ML SYR IVP ×2 (13:02→21:34)
[2020-05-21] MEDS: PROPOFOL 1,000 MG/100 ML BTL 18.18 MG IVPB ×2 (14:45→20:44)
[2020-05-21 19:09] LABS: HCT 35.9 % (40.0-50.0)
--- NOTE | 2020-05-21 19:14 | DI.VRAD_ITS ---
PROCEDURE INFORMATION: Exam: XR Abdomen, 1 View Exam date and time: 05/21/2020 6:53 PM Age: 65 years old Clinical indication: Abdominal pain TECHNIQUE: Imaging protocol: XR of the abdomen. Views: Frontal supine view of the abdomen. 1 View. COMPARISON: CR XR ABDOMEN FLAT PLATE 05/21/2020 6:56 AM FINDINGS: Tubes, catheters and devices: Tip of nasogastric tube located within the stomach. Gastrointestinal tract: No dilated small or large bowel loops. Stable air collection within the mid transverse colon. Vasculature: Arterial calcification. Bones/joints: Spinal degenerative changes. Soft tissues: Upper abdominal surgical tristan. IMPRESSION: 1. Tip of nasogastric tube located within the stomach. 2. Stable air collection within the mid transverse colon. 3. No generalized ileus or obstruction. Dictated and Authenticated by: Fernando Leon MD. Ordering:KORY Melo MD
[2020-05-21 19:24] LABS: Anion Gap 6.6 mmol/L (3-11); BUN 15 mg/dL (7-18); CO2 25.4 mmol/L (21.0-32.0); CREATININE 0.93 mg/dL (0.70-1.30); Calcium 7.1 mg/dL (8.5-10.1); Chloride 104 mmol/L (98-107); Glucose 203 mg/dL (74-106); Potassium 3.8 mmol/L (3.5-5.1); Sodium 136 mmol/L (136-145); Troponin I < 0.05 ng/mL (<0.06)
[2020-05-21] MEDS: Normal Saline 1,000 ML 1000 ML IV (20:11)
--- NOTE | 2020-05-21 20:49 | PGE_ITS ---
Date of Service Date of service: 05/21/20 Time of Service: 19:00 Assessment and Plan Assessment and plan (1) Small bowel obstruction: Status: Acute Assessment and plan: Patient is currently hemodynamically stable. He is stable on the ventilator no signs pneumonia at this point. He is been in normal sinus rhythm. He has been normotensive. He has had no ST or T wave changes. His continence is been stable. He is continues to withdraw from alcohol. He is sedated on propofol. He does have a small bowel obstruction which does not appear to be resolving at this time. We did review a repeat abdominal x-ray. He still is obstructed and there is no free air. His hemoglobin is stable at 12.0. Unless there is any appreciable change in the next 12 hours we will plan on transferring him to [facility] [place] in a.m. He will need to have TPN started for nutritional support. He is at high risk from a nutritional standpoint. I did discuss the case with Dr. Anaya who is in agreement. At this time he is stable and we can defer transfer until a.m. 45 minutes spent in critical care time this evening Subjective Subjective Interval history since last seen: Patient seen and examined at approximately 1900 hrs. I did review the with the nurse to findings during her shift. Fadia howard has had only bilious output from NG tube no fevers. Vitals have been stable he remains in normal sinus rhythm he is not on any pressors or any antiarrhythmics. He has been stable on the ventilator past 12 hours with no appreciable changes. His chest x-ray does not show any infiltrates pneumothorax. The central line is in good position the tube is in good position we did. Position is NG tube today. His urine output has decreased throughout the day shift. We will we fluid balance him. He has been hemodynamically stable. There is been no signs of GI bleeding. His abdomen does appear to be slightly more distended today. He is not passed any gas or had any bowel movements. He is sedated but not paralyzed Exam HENMT Other: no change Chest Chest: normal inspection of the chest Other: Line site is clean dry and intact Resp Auscultation: clear to auscultation bilaterally Cardio Other: NSR GI Other: distended no BS no hernia grimaces w/ palpation adn withdraws. Extrem General: no pedal edema Objective Objective Clinical Data: Abnormal lab results 05/20/20 05/21/20 05/21/20 Range/Units 17:32 06:05 06:05 WBC 13.56 H (4.4-10.8) k/cumm RBC 3.43 L (4.50-6.00) m/cumm Hgb 11.4 L D (13.5-17.5) g/dL Hct 34.6 L D (40.0-50.0) % MCV 100.9 H D (80-95) fL MCH 33.2 H (27.0-33.0) pg RDW 15.8 H (11.8-14.1) % Absolute Neutrophils 12.22 H (1.2-6.7) k/cumm Absolute Lymphocytes 0.38 L (1.2-3.4) k/cumm Absolute Monocytes 0.89 H (0.11-0.7) k/cumm Glucose 135 H (74-106) mg/dL Calcium 6.7 L (8.5-10.1) mg/dL Total Bilirubin 1.5 H (0.2-1.0) mg/dL GGT 421 H (15-85) U/L Alkaline Phosphatase 134 H (46-116) U/L Total Protein 4.2 L (6.4-8.2) g/dL Albumin 1.6 L (3.4-5.0) g/dL Crossmatch See Detail 05/21/20 05/21/20 Range/Units 19:00 19:00 WBC (4.4-10.8) k/cumm RBC (4.50-6.00) m/cumm Hgb 12.0 L (13.5-17.5) g/dL Hct 35.9 L (40.0-50.0) % MCV (80-95) fL MCH (27.0-33.0) pg RDW (11.8-14.1) % Absolute Neutrophils (1.2-6.7) k/cumm Absolute Lymphocytes (1.2-3.4) k/cumm Absolute Monocytes (0.11-0.7) k/cumm Glucose 203 H (74-106) mg/dL Calcium 7.1 L (8.5-10.1) mg/dL Total Bilirubin (0.2-1.0) mg/dL GGT (15-85) U/L Alkaline Phosphatase (46-116) U/L Total Protein (6.4-8.2) g/dL Albumin (3.4-5.0) g/dL Crossmatch Vital Signs Temperature 36.5 C 05/21/20 19:56 Temperature Source Temporal Artery Scan 05/21/20 19:56 Pulse 76 05/21/20 19:01 Pulse 97 H 05/21/20 19:01 Respiratory Rate 20 05/21/20 19:56 Respiratory Effort 05/21/20 19:56 Respiratory Depth Normal 05/21/20 07:30 Respiratory Pattern Normal 05/21/20 07:30 Blood Pressure 112/57 L 05/21/20 19:01 Blood Pressure Mean 71 05/21/20 19:01 Blood Pressure Position Supine 05/21/20 15:34 Pulse Oximetry 95 05/21/20 18:09 Respiratory End-tidal CO2 29 05/21/20 19:01 Oxygen Delivery Method Mechanical Ventilator 05/21/20 15:57 Oxygen Flow Rate 0 05/21/20 15:57 Fraction of Inspired Oxygen (FIO2) 21 05/21/20 18:09 Pain Level 7 05/21/20 12:00 Intake & Output 05/20/20 05/21/20 05/21/20 23:59 11:59 23:59 Intake Total 3147.145 / 3147.145 3272.262 / 3497.537 225.275 / 3497.537 Output Total 345 / 345 475 / 584 109 / 584 Balance 2802.145 / 2802.145 2797.262 / 2913.537 116.275 / 2913.537 Weight 60.6 kg 59 kg Intake: IV 3147.145 / 3147.145 2472.262 / 2697.537 225.275 / 2697.537 Blood Product 0 / 0 800 / 800 Rbc Leuko Reduced Unit 0 / 0 500 / 500 [id number] Rbc Leuko Reduced Unit 300 / 300 [id number] Output: Gastric Drainage Left Nare Urine 325 / 325 450 / 559 109 / 559 Other: Urine Color Dark Haylee Yellow Dark Haylee Light Haylee Urine Appearance Clear Clear Clear Urine Odor Strong Comment Delgado draining dark haylee urine. delgado drainage bag changed out for a urinemeter. urimeter in place. Gastric Occult Blood Left Nare Positive Voiding Methods Indwelling Catheter Laboratory Results WBC 13.56 k/cumm (4.4-10.8) H 05/21/20 06:05 RBC 3.43 m/cumm (4.50-6.00) L 05/21/20 06:05 Hgb 12.0 g/dL (13.5-17.5) L 05/21/20 19:00 Hct 35.9 % (40.0-50.0) L 05/21/20 19:00 MCV 100.9 fL (80-95) H D 05/21/20 06:05 MCH 33.2 pg (27.0-33.0) H 05/21/20 06:05 MCHC 32.9 g/dL (32.0-36.0) 05/21/20 06:05 RDW 15.8 % (11.8-14.1) H 05/21/20 06:05 Plt Count 256 x1000/uL (130-400) 05/21/20 06:05 MPV 11.0 fL (8.0-11.0) 05/21/20 06:05 Immature Gran % 0.4 % 05/21/20 06:05 Neutrophils % 90.1 05/21/20 06:05 Lymphocytes % 2.8 05/21/20 06:05 Monocytes % 6.6 05/21/20 06:05 Eosinophils % 0.1 05/21/20 06:05 Basophils % 0.0 05/21/20 06:05 Absolute Neutrophils 12.22 k/cumm (1.2-6.7) H 05/21/20 06:05 Absolute Lymphocytes 0.38 k/cumm (1.2-3.4) L 05/21/20 06:05 Absolute Monocytes 0.89 k/cumm (0.11-0.7) H 05/21/20 06:05 Absolute Eosinophils 0.01 k/cumm (0.0-0.7) 05/21/20 06:05 Absolute Basophils 0.00 k/cumm (0.0-0.2) 05/21/20 06:05 Differential Comment Rbc morph reviewed 05/20/20 17:32 RBC Morphology See below 05/20/20 17:32 Polychromasia Present 05/20/20 13:50 Poikilocytosis 1+ 05/20/20 13:50 Anisocytosis 1+ 05/20/20 13:50 Macrocytosis 2+ 05/20/20 17:32 PT Cancelled 05/20/20 14:10 INR Cancelled 05/20/20 14:10 D-Dimer 929 ng/mlFEU (<500) H 05/20/20 09:56 ABG Sample Site Right radial 05/21/20 07:47 ABG pH 7.36 (7.35-7.45) 05/21/20 07:47 ABG pCO2 46 mmHg (34-47) 05/21/20 07:47 ABG pO2 102 mmHg (83-108) 05/21/20 07:47 ABG HCO3 26 mmol/L (22-28) 05/21/20 07:47 ABG Total CO2 24 mmol/L (22-29) 05/21/20 07:47 ABG O2 Saturation 98 % (94-98) 05/21/20 07:47 ABG Base Excess 0.4 mmol/L (-3-3) 05/21/20 07:47 Oxygen Liter Flow Vc 350/20/5 L 05/21/20 07:47 FiO2 30 % 05/21/20 07:47 Sodium 136 mmol/L (136-145) 05/21/20 19:00 Potassium 3.8 mmol/L (3.5-5.1) 05/21/20 19:00 Chloride 104 mmol/L (98-107) 05/21/20 19:00 Carbon Dioxide 25.4 mmol/L (21.0-32.0) 05/21/20 19:00 Anion Gap 6.6 mmol/L (3-11) 05/21/20 19:00 BUN 15 mg/dL (7-18) 05/21/20 19:00 Creatinine 0.93 mg/dL (0.70-1.30) 05/21/20 19:00 Estimated GFR/1.73 m2 >= 60.00 (mL/min/1.73m2) 05/21/20 19:00 Glucose 203 mg/dL (74-106) H 05/21/20 19:00 Hemoglobin A1c 5.9 % (3.8-5.6) H 05/20/20 09:56 Lactate 1.0 mmol/L (0.6-1.4) 05/21/20 07:50 Calcium 7.1 mg/dL (8.5-10.1) L 05/21/20 19:00 Magnesium 2.4 mg/dL (1.8-2.4) 05/21/20 06:05 Iron 34 ug/dL (65-175) L 05/20/20 09:56 TIBC 122 ug/dL (250-450) L 05/20/20 09:56 Transferrin % Sat 28 % (20-55) 05/20/20 09:56 Ferritin 554 ng/mL (26-388) H 05/20/20 09:56 Total Bilirubin 1.5 mg/dL (0.2-1.0) H 05/21/20 06:05 Conjugated Bilirubin 0.51 mg/dL (0.00-0.20) H 05/20/20 13:50 GGT 421 U/L (15-85) H 05/21/20 06:05 AST 31 U/L (15-37) 05/21/20 06:05 ALT 22 U/L (16-63) 05/21/20 06:05 Alkaline Phosphatase 134 U/L (46-116) H 05/21/20 06:05 Troponin I < 0.05 ng/mL (<0.06) 05/21/20 19:00 Total Protein 4.2 g/dL (6.4-8.2) L 05/21/20 06:05 Albumin 1.6 g/dL (3.4-5.0) L 05/21/20 06:05 Urine Color Yellow (Yellow) 05/20/20 19:10 Urine Clarity Clear (Clear) 05/20/20 19:10 Urine pH 5.5 (5-8) 05/20/20 19:10 Ur Specific [place] 1.025 (1.005-1.025) 05/20/20 19:10 Urine Protein 30 mg/dL (Negative) H 05/20/20 19:10 Urine Ketones Negative mg/dL (Negative) 05/20/20 19:10 Urine Blood Large (Negative) H 05/20/20 19:10 Urine Nitrite Negative (Negative) 05/20/20 19:10 Urine Bilirubin Negative (Negative) 05/20/20 19:10 Urine Urobilinogen 0.2 EU/dL (Up TO 0.2) 05/20/20 19:10 Ur Leukocyte Esterase Negative (Negative) 05/20/20 19:10 Urine RBC >50 HPF (0-2) H 05/20/20 19:10 Urine WBC 3-5 HPF (0-5) 05/20/20 19:10 Ur Epithelial Cells Few HPF (Negative) 05/20/20 19:10 Urine Crystals Few uric acid HPF (Negative) 05/20/20 19:10 Urine Bacteria Few HPF (Negative) 05/20/20 19:10 Urine Casts 3-5 coarse granular LPF (Negative) 05/20/20 19:10 Urine Mucus Negative (Negative) 05/20/20 19:10 Ur Culture Indicated? C&s done as ordered 05/20/20 19:10 Urine Glucose Negative mg/dL (Negative) 05/20/20 19:10 COVID-19 PCR Negative (Negative) 05/20/20 09:50 Nasopharyn COVID-19 PCR Not Applicable 05/20/20 09:50 Ref Test Perform Site [facility] lab 05/20/20 09:50 Patient ABO/Rh O Positive 05/20/20 17:32 Antibody Screen Negative 05/20/20 17:32 Crossmatch See Detail 05/20/20 17:32
[2020-05-22] VITALS (34 sets, daily range): BP systolic 79–99; BP diastolic 44–68; PULSE 79–100; RESP 1–24; TEMP 36.2–36.5; O2SAT 90–98
--- NOTE | 2020-05-22 | DI.RAD_ITS ---
EXAM: 2D digital imaging was performed. CLINICAL HISTORY: f/u on SBO. COMPARISON: CR,XR XR ABDOMEN FLAT PLATE from 05/21/2020 TECHNIQUE: Supine views of the abdomen performed. FINDINGS: The examination is limited due to patient motion artifact. The tip of the nasogastric tube is seen i n the stomach. There is a persistent air collection in the upper mid abdomen likely root within the transverse colon. The remainder of the bowel is unremarkable. A urinary bladder catheter is again n oted. Degenerative changes are seen in the spine. DATA REPOSITORY: RADIATION DOSE DELIVERED:
[2020-05-22] MEDS: PIPERACILLIN/TAZO 3.375 GM in Normal Saline 50 ML IVPB ×2 (00:42→07:55)
[2020-05-22] MEDS: Insulin Aspart 300 UNITS/3 ML PEN SC (00:42)
[2020-05-22] MEDS: Normal Saline 1,000 ML 132 ML IV (00:43)
[2020-05-22] MEDS: PROPOFOL 1,000 MG/100 ML BTL 16.362 MG IVPB ×2 (01:21→07:58)
--- NOTE | 2020-05-22 06:23 | DI.RAD_ITS ---
EXAM: XR PORTABLE CHEST AP POST LINE CLINICAL HISTORY: intubated patient - confirm position of ET tube TECHNIQUE: 2D digital imaging was performed. COMPARISON: CR XR PORTABLE CHEST AP POST LINE from 05/21/2020 FINDINGS: MEDIASTINUM: Normal. HEART: Normal. PULMONARY VASCULATURE: Normal. LUNGS: Right lung is clear. There is a stable left basilar infiltrate. PLEURAL SPACE: No pleural effusion or pneumothorax. BONE:Normal. OTHER FINDINGS:ET tube is in good position above the [place]. The tip of the nasogastric tube is in t he stomach. The tip of the central venous catheter is in the superior vena cava. IMPRESSION: 1. Tubes and lines are in good position. 2. Stable left basilar infiltrate/effusion. DATA REPOSITORY: RADIATION DOSE DELIVERED:
[2020-05-22 07:09] LABS: Abs Immature Grans 0.05 k/cumm (0.0-0.09); HCT 37.1 % (40.0-50.0); HGB 12.1 g/dL (13.5-17.5); Mean Corp. HGB Concentration 32.6 g/dL (32.0-36.0); Mean Corpuscular Hemoglobin 33.2 pg (27.0-33.0); Mean Corpuscular Volume 101.6 fL (80-95); Mean Platelet Volume 11.3 fL (8.0-11.0); RBC 3.65 m/cumm (4.50-6.00); RBC Distribution Width 16.3 % (11.8-14.1); White Blood Cell Count 15.27 k/cumm (4.4-10.8)
--- NOTE | 2020-05-22 07:16 | DI.VRAD_ITS ---
PROCEDURE INFORMATION: Exam: XR Chest, 1 View Exam date and time: 05/22/2020 6:24 AM Age: 65 years old Clinical indication: Device placement; Ett placement (vent status) TECHNIQUE: Imaging protocol: XR of the chest Views: 1 view. COMPARISON: CR XR PORTABLE CHEST AP POST LINE 05/21/2020 6:52 AM FINDINGS: Tubes, catheters and devices: There is an enteric tube in place with tip in the stomach. An endotracheal tube is seen in place with tip 4 cm above the [place]. A left subclavian catheter is seen in place with tip in the region of the distal SVC. An embolization coil is seen in the epigastric region. Lungs: There is a small region of opacity at the left costophrenic angle which may be a small effusion and/or region of consolidation. This is unchanged from the prior study. No pneumothorax. Heart/Mediastinum: Unremarkable. No cardiomegaly. Bones/joints: Unremarkable. IMPRESSION: Endotracheal tube in good position . Stable small region of opacity at the left costophrenic angle which may be an effusion or area of consolidation. Dictated and Authenticated by: Marcy Skinner MD. Ordering:KEVAN Porras MD
[2020-05-22 07:25] LABS: BE -1.2 mmol/L (-3-3); HCO3 24 mmol/L (22-28); pCO2 43 mmHg (34-47); pH 7.36 (7.35-7.45); pO2 63 mmHg (83-108); sO2 92 % (94-98); tCO2 22 mmol/L (22-29)
[2020-05-22 07:28] LABS: FIO2 21 %
[2020-05-22 07:29] LABS: Site Right Brachial
[2020-05-22 07:35] LABS: ALT 17 U/L (16-63); AST 20 U/L (15-37); Albumin 1.4 g/dL (3.4-5.0); Alkaline Phosphatase 123 U/L (46-116); Anion Gap 7.1 mmol/L (3-11); BUN 13 mg/dL (7-18); Bilirubin, Direct 0.84 mg/dL (0.00-0.20); Bilirubin, Total 1.2 mg/dL (0.2-1.0); CO2 24.9 mmol/L (21.0-32.0); Calcium 7.4 mg/dL (8.5-10.1); Chloride 106 mmol/L (98-107); Glucose 107 mg/dL (74-106); Magnesium 2.1 mg/dL (1.8-2.4); Potassium 3.4 mmol/L (3.5-5.1); Sodium 138 mmol/L (136-145); Total Protein 4.1 g/dL (6.4-8.2)
--- NOTE | 2020-05-22 07:36 | PGE_ITS ---
Date of Service Date of service: 05/22/20 Time of Service: 07:15 Objective Objective Clinical Data: Abnormal lab results 05/21/20 05/21/20 05/21/20 Range/Units 06:05 19:00 19:00 Hgb 12.0 L (13.5-17.5) g/dL Hct 35.9 L (40.0-50.0) % ABG pO2 (83-108) mmHg ABG O2 Saturation (94-98) % Glucose 135 H 203 H (74-106) mg/dL Calcium 6.7 L 7.1 L (8.5-10.1) mg/dL Total Bilirubin 1.5 H (0.2-1.0) mg/dL GGT 421 H (15-85) U/L Alkaline Phosphatase 134 H (46-116) U/L Total Protein 4.2 L (6.4-8.2) g/dL Albumin 1.6 L (3.4-5.0) g/dL 05/22/20 Range/Units 07:20 Hgb (13.5-17.5) g/dL Hct (40.0-50.0) % ABG pO2 63 L (83-108) mmHg ABG O2 Saturation 92 L (94-98) % Glucose (74-106) mg/dL Calcium (8.5-10.1) mg/dL Total Bilirubin (0.2-1.0) mg/dL GGT (15-85) U/L Alkaline Phosphatase (46-116) U/L Total Protein (6.4-8.2) g/dL Albumin (3.4-5.0) g/dL Vital Signs Temperature 97.2 F L 05/22/20 04:12 Temperature Source Temporal Artery Scan 05/22/20 06:00 Pulse 96 H 05/22/20 04:00 Pulse 87 05/22/20 03:01 Respiratory Rate 20 05/22/20 06:44 Respiratory Effort 05/22/20 04:12 Respiratory Depth Normal 05/22/20 04:12 Respiratory Pattern Normal 05/22/20 04:12 Blood Pressure 99/64 L 05/22/20 04:00 Blood Pressure Mean 69 05/22/20 03:00 Blood Pressure Position Supine 05/21/20 15:34 Pulse Oximetry 92 L 05/22/20 06:44 Respiratory End-tidal CO2 28 05/22/20 06:44 Oxygen Delivery Method Mechanical Ventilator 05/21/20 15:57 Oxygen Flow Rate 0 05/21/20 15:57 Fraction of Inspired Oxygen (FIO2) 21 05/22/20 06:44 Pain Level 7 05/21/20 12:00 Intake & Output 05/21/20 05/21/20 05/22/20 11:59 23:59 11:59 Intake Total 3272.262 / 5558.737 2286.475 / 5558.737 133.931 / 133.931 Output Total 475 / 914 439 / 914 420 / 420 Balance 2797.262 / 4644.737 1847.475 / 4644.737 -286.069 / -286.069 Weight 130 lb 1.164 oz 157 lb 3.033 oz Intake: IV 2472.262 / 4758.737 2286.475 / 4758.737 133.931 / 133.931 Right Radial 0 / 0 Blood Product 800 / 800 Rbc Leuko Reduced Unit 500 / 500 [id number] Rbc Leuko Reduced Unit 300 / 300 [id number] Output: Gastric Drainage 25 / 55 30 / 55 200 / 200 Left Nare 25 / 55 30 / 55 200 / 200 Urine 450 / 859 409 / 859 220 / 220 Other: Urine Color Yellow Dark Juliet Light Juliet Light Juliet Urine Appearance Clear Clear Clear Urine Odor Strong Strong None Comment delgado drainage bag changed out for a urinemeter. urimeter in place. Gastric Occult Blood Left Nare Positive Voiding Methods Indwelling Catheter Indwelling Catheter Indwelling Catheter Laboratory Results WBC 13.56 k/cumm (4.4-10.8) H 05/21/20 06:05 RBC 3.43 m/cumm (4.50-6.00) L 05/21/20 06:05 Hgb 12.0 g/dL (13.5-17.5) L 05/21/20 19:00 Hct 35.9 % (40.0-50.0) L 05/21/20 19:00 MCV 100.9 fL (80-95) H D 05/21/20 06:05 MCH 33.2 pg (27.0-33.0) H 05/21/20 06:05 MCHC 32.9 g/dL (32.0-36.0) 05/21/20 06:05 RDW 15.8 % (11.8-14.1) H 05/21/20 06:05 Plt Count 256 x1000/uL (130-400) 05/21/20 06:05 MPV 11.0 fL (8.0-11.0) 05/21/20 06:05 Immature Gran % 0.4 % 05/21/20 06:05 Neutrophils % 90.1 05/21/20 06:05 Lymphocytes % 2.8 05/21/20 06:05 Monocytes % 6.6 05/21/20 06:05 Eosinophils % 0.1 05/21/20 06:05 Basophils % 0.0 05/21/20 06:05 Absolute Neutrophils 12.22 k/cumm (1.2-6.7) H 05/21/20 06:05 Absolute Lymphocytes 0.38 k/cumm (1.2-3.4) L 05/21/20 06:05 Absolute Monocytes 0.89 k/cumm (0.11-0.7) H 05/21/20 06:05 Absolute Eosinophils 0.01 k/cumm (0.0-0.7) 05/21/20 06:05 Absolute Basophils 0.00 k/cumm (0.0-0.2) 05/21/20 06:05 Differential Comment Rbc morph reviewed 05/20/20 17:32 RBC Morphology See below 05/20/20 17:32 Polychromasia Present 05/20/20 13:50 Poikilocytosis 1+ 05/20/20 13:50 Anisocytosis 1+ 05/20/20 13:50 Macrocytosis 2+ 05/20/20 17:32 PT Cancelled 05/20/20 14:10 INR Cancelled 05/20/20 14:10 D-Dimer 929 ng/mlFEU (<500) H 05/20/20 09:56 ABG Sample Site Right brachial 05/22/20 07:20 ABG pH 7.36 (7.35-7.45) 05/22/20 07:20 ABG pCO2 43 mmHg (34-47) 05/22/20 07:20 ABG pO2 63 mmHg (83-108) L 05/22/20 07:20 ABG HCO3 24 mmol/L (22-28) 05/22/20 07:20 ABG Total CO2 22 mmol/L (22-29) 05/22/20 07:20 ABG O2 Saturation 92 % (94-98) L 05/22/20 07:20 ABG Base Excess -1.2 mmol/L (-3-3) 05/22/20 07:20 Oxygen Liter Flow Vt350/r20/[id number] L 05/22/20 07:20 FiO2 21 % 05/22/20 07:20 Sodium 136 mmol/L (136-145) 05/21/20 19:00 Potassium 3.8 mmol/L (3.5-5.1) 05/21/20 19:00 Chloride 104 mmol/L (98-107) 05/21/20 19:00 Carbon Dioxide 25.4 mmol/L (21.0-32.0) 05/21/20 19:00 Anion Gap 6.6 mmol/L (3-11) 05/21/20 19:00 BUN 15 mg/dL (7-18) 05/21/20 19:00 Creatinine 0.93 mg/dL (0.70-1.30) 05/21/20 19:00 Estimated GFR/1.73 m2 >= 60.00 (mL/min/1.73m2) 05/21/20 19:00 Glucose 203 mg/dL (74-106) H 05/21/20 19:00 Hemoglobin A1c 5.9 % (3.8-5.6) H 05/20/20 09:56 Lactate 1.0 mmol/L (0.6-1.4) 05/21/20 07:50 Calcium 7.1 mg/dL (8.5-10.1) L 05/21/20 19:00 Magnesium 2.4 mg/dL (1.8-2.4) 05/21/20 06:05 Iron 34 ug/dL (65-175) L 05/20/20 09:56 TIBC 122 ug/dL (250-450) L 05/20/20 09:56 Transferrin % Sat 28 % (20-55) 05/20/20 09:56 Ferritin 554 ng/mL (26-388) H 05/20/20 09:56 Total Bilirubin 1.5 mg/dL (0.2-1.0) H 05/21/20 06:05 Conjugated Bilirubin 0.51 mg/dL (0.00-0.20) H 05/20/20 13:50 GGT 421 U/L (15-85) H 05/21/20 06:05 AST 31 U/L (15-37) 05/21/20 06:05 ALT 22 U/L (16-63) 05/21/20 06:05 Alkaline Phosphatase 134 U/L (46-116) H 05/21/20 06:05 Troponin I < 0.05 ng/mL (<0.06) 05/21/20 19:00 Total Protein 4.2 g/dL (6.4-8.2) L 05/21/20 06:05 Albumin 1.6 g/dL (3.4-5.0) L 05/21/20 06:05 Urine Color Yellow (Yellow) 05/20/20 19:10 Urine Clarity Clear (Clear) 05/20/20 19:10 Urine pH 5.5 (5-8) 05/20/20 19:10 Ur Specific [place] 1.025 (1.005-1.025) 05/20/20 19:10 Urine Protein 30 mg/dL (Negative) H 05/20/20 19:10 Urine Ketones Negative mg/dL (Negative) 05/20/20 19:10 Urine Blood Large (Negative) H 05/20/20 19:10 Urine Nitrite Negative (Negative) 05/20/20 19:10 Urine Bilirubin Negative (Negative) 05/20/20 19:10 Urine Urobilinogen 0.2 EU/dL (Up TO 0.2) 05/20/20 19:10 Ur Leukocyte Esterase Negative (Negative) 05/20/20 19:10 Urine RBC >50 HPF (0-2) H 05/20/20 19:10 Urine WBC 3-5 HPF (0-5) 05/20/20 19:10 Ur Epithelial Cells Few HPF (Negative) 05/20/20 19:10 Urine Crystals Few uric acid HPF (Negative) 05/20/20 19:10 Urine Bacteria Few HPF (Negative) 05/20/20 19:10 Urine Casts 3-5 coarse granular LPF (Negative) 05/20/20 19:10 Urine Mucus Negative (Negative) 05/20/20 19:10 Ur Culture Indicated? C&s done as ordered 05/20/20 19:10 Urine Glucose Negative mg/dL (Negative) 05/20/20 19:10 COVID-19 PCR Negative (Negative) 05/20/20 09:50 Nasopharyn COVID-19 PCR Not Applicable 05/20/20 09:50 Ref Test Perform Site [facility] lab 05/20/20 09:50 Patient ABO/Rh O Positive 05/20/20 17:32 Antibody Screen Negative 05/20/20 17:32 Crossmatch See Detail 05/20/20 17:32
[2020-05-22] MEDS: Albuterol/Ipratropium 3 ML UPD VIAL UPD (07:41)
[2020-05-22 07:43] LABS: Absolute Lymphocyte Count 0.31 k/cumm (1.2-3.4); Absolute Monocyte Count 0.61 k/cumm (0.11-0.7); Absolute Neutrophil Count 14.05 k/cumm (1.2-6.7)
[2020-05-22 07:44] LABS: Anisocytosis 1+; Diff Comment Manual Differential; Macrocytosis 2+; Polychromasia Present
[2020-05-22 07:45] LABS: Platelet Count 266 x1000/uL (130-400); Poikilocytes 1+
[2020-05-22] MEDS: ALBUMIN HUMAN 25 GM/100 ML BTL IV (08:00)
[2020-05-22] MEDS: Lacri-Lube 3.5 GM TUBE OU (08:09)
--- NOTE | 2020-05-22 08:21 | W.PM.PROGNOT ---
Date of Service Date of service: 05/22/20 Time of Service: 10:33 Assessment and Plan Assessment and plan (1) Acute respiratory failure with hypoxia and hypercapnia: Status: Acute Assessment and plan: Now on vent. Resp. failure occured in setting of alcohol withdrawal, requiring medication with benzodiazepines, and SBO requiring narcotic pain medication, with underlying PADDY. ABG reviewed and stable this am - O2 did get bumped up to 2 L. I am not convinced he has PNA. Continue empiric zosyn. Stable for transfer on vent. (2) Left lower lobe pulmonary infiltrate: Status: Acute Assessment and plan: As above (3) Rapid atrial fibrillation: Status: Suspected Assessment and plan: I think the patient has sinus arrhythmia with bouts of SVT which could very well be Afib based on rates. Evidently he has had Afib before at [facility]. In setting of alcohol withdrawal/acute illness. Echo done, results still not available for my review. Would not anticoagulate at this time - or ever - given his history of a known unhealed jejunal ulcer, gastroccult positivity, anemia requiring 2 units of pRBCs on this admission. Await Zio patch and echo read. No longer on cardizem. Has prn lopressor for SVT if recurs. Keep sedated. Treat SBO. (4) Alcohol withdrawal: Status: Acute Assessment and plan: Read above - intubated, on propofol. (5) Small bowel obstruction: Status: Acute Assessment and plan: clinically not improving. S/p NGT. Defer to surgical service whose plan at this time is to transfer to [facility]. (6) Elevated troponin: Status: Acute Assessment and plan: Probably indicator of slight cardiac strain, not a true NSTEMI/ACS. Await echo read. HEATHER is contraindicated regardless given nonhealing jejunal ulcer. Would eventually benefit from outpatient ischemic workup once the acute surgical issues have resolved. (7) Hypomagnesemia: Status: Resolved (8) Elevated serum GGT level: Status: Acute Assessment and plan: In light of alcoholic liver disease, I do not think this represents true liver failure. GGT better. Discriminant function score 2.9 - good prognosis. (9) Lactic acidosis: Status: Resolved Assessment and plan: Multifactorial: due to Afib, dehydration, alcoholic liver disease, bowel obstruction, hypoxemia. Resolved. Continue IVF. 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 Patient noncompliant with carafate. Did require 2 units pRBCs on this admission. Given anemia and gastroccult positivity, will likely need an EGD on this admission - preferably at a tertiary care facility where his anatomy is known. Continue PPI. Monitor for gross GI bleeding. (11) DVT prophylaxis: Status: Acute Assessment and plan: lovenox never given and now d/c'ed. On TEDs/SCDs. Chemical DVT ppx is contraindicated in setting of suspected slow GI bleeding on presentation. (12) Discharge planning issues: Status: Acute Assessment and plan: Total Critical Care Time 40 minutes. Recommend/agree with decision to transfer to a tertiary care facility for higher level of care. Subjective Subjective Interval history since last seen: Remains Intubated/sedated with propfol. Still no BM or bowel sounds. Getting albumin this am. Minimal UOP overnight (51 cc). Put out a 1 liter in NGT. Wide complex tachycardia yesterday afternoon. 19 beats. Likely Vtach. Getting transferred to [facility] this am. Brief burst of SVT - HR 165. Just received morphine for abdominal pain and is not arousable on my exam. Exam Narrative Exam Narrative: General: Middle-aged male, intubated, sedated, not arousable to painful stimuli this morning HEENT: eyes closed; PERRLA, NGT/ET in place; billious output in NGT. Heart: RRR, no m/r/g Lungs: CTAB, ventilator respiratory sounds Gastrointestinal: still soft, no bowel sounds, more distended than on admission, but not impressively distended overall. Genitourinary: delgado in place Extremities: no edema BLE's, +1 pedal pulses B, TEDS/SCDs on Objective Objective Clinical Data: Abnormal lab results 05/21/20 05/21/20 05/21/20 Range/Units 06:05 19:00 19:00 WBC (4.4-10.8) k/cumm RBC (4.50-6.00) m/cumm Hgb 12.0 L (13.5-17.5) g/dL Hct 35.9 L (40.0-50.0) % MCV (80-95) fL MCH (27.0-33.0) pg RDW (11.8-14.1) % MPV (8.0-11.0) fL Absolute Neutrophils (1.2-6.7) k/cumm Absolute Lymphocytes (1.2-3.4) k/cumm ABG pO2 (83-108) mmHg ABG O2 Saturation (94-98) % Potassium (3.5-5.1) mmol/L Glucose 135 H 203 H (74-106) mg/dL Calcium 6.7 L 7.1 L (8.5-10.1) mg/dL Total Bilirubin 1.5 H (0.2-1.0) mg/dL Conjugated Bilirubin (0.00-0.20) mg/dL GGT 421 H (15-85) U/L Alkaline Phosphatase 134 H (46-116) U/L Total Protein 4.2 L (6.4-8.2) g/dL Albumin 1.6 L (3.4-5.0) g/dL 05/22/20 05/22/20 05/22/20 Range/Units 06:11 06:11 07:20 WBC 15.27 H (4.4-10.8) k/cumm RBC 3.65 L (4.50-6.00) m/cumm Hgb 12.1 L (13.5-17.5) g/dL Hct 37.1 L (40.0-50.0) % MCV 101.6 H (80-95) fL MCH 33.2 H (27.0-33.0) pg RDW 16.3 H (11.8-14.1) % MPV 11.3 H (8.0-11.0) fL Absolute Neutrophils 14.05 H (1.2-6.7) k/cumm Absolute Lymphocytes 0.31 L (1.2-3.4) k/cumm ABG pO2 63 L (83-108) mmHg ABG O2 Saturation 92 L (94-98) % Potassium 3.4 L (3.5-5.1) mmol/L Glucose 107 H D (74-106) mg/dL Calcium 7.4 L (8.5-10.1) mg/dL Total Bilirubin 1.2 H (0.2-1.0) mg/dL Conjugated Bilirubin 0.84 H (0.00-0.20) mg/dL GGT (15-85) U/L Alkaline Phosphatase 123 H (46-116) U/L Total Protein 4.1 L (6.4-8.2) g/dL Albumin 1.4 L (3.4-5.0) g/dL Vital Signs Temperature 36.2 C L 05/22/20 04:12 Temperature Source Temporal Artery Scan 05/22/20 06:00 Pulse 88 05/22/20 07:41 Pulse 87 05/22/20 03:01 Respiratory Rate 20 05/22/20 07:41 Respiratory Effort 05/22/20 04:12 Respiratory Depth Normal 05/22/20 04:12 Respiratory Pattern Normal 05/22/20 04:12 Blood Pressure 99/64 L 05/22/20 04:00 Blood Pressure Mean 69 05/22/20 03:00 Blood Pressure Position Supine 05/21/20 15:34 Pulse Oximetry 93 L 05/22/20 07:41 Respiratory End-tidal CO2 28 05/22/20 06:44 Oxygen Delivery Method Mechanical Ventilator 05/22/20 07:41 Oxygen Flow Rate 0 05/22/20 07:41 Fraction of Inspired Oxygen (FIO2) 30 05/22/20 07:41 Pain Level 7 05/21/20 12:00 Intake & Output 05/21/20 05/21/20 05/22/20 11:59 23:59 11:59 Intake Total 3272.262 / 5558.737 2286.475 / 5558.737 1190.931 / 1190.931 Output Total 475 / 914 439 / 914 420 / 420 Balance 2797.262 / 4644.737 1847.475 / 4644.737 770.931 / 770.931 Weight 59 kg 71.3 kg Intake: IV 2472.262 / 4758.737 2286.475 / 4758.737 1190.931 / 1190.931 Right Radial 0 / 0 Blood Product 800 / 800 Rbc Leuko Reduced Unit 500 / 500 [id number] Rbc Leuko Reduced Unit 300 / 300 [id number] Output: Gastric Drainage 30 / 200 / 200 Left Nare 200 / 200 Urine 450 / 859 409 / 859 220 / 220 Other: Urine Color Yellow Dark Juliet Light Juliet Light Juliet Urine Appearance Clear Clear Clear Urine Odor Strong Strong None Comment delgado drainage bag changed out for a urinemeter. urimeter in place. Gastric Occult Blood Left Nare Positive Voiding Methods Indwelling Catheter Indwelling Catheter Indwelling Catheter Laboratory Results WBC 15.27 k/cumm (4.4-10.8) H 05/22/20 06:11 RBC 3.65 m/cumm (4.50-6.00) L 05/22/20 06:11 Hgb 12.1 g/dL (13.5-17.5) L 05/22/20 06:11 Hct 37.1 % (40.0-50.0) L 05/22/20 06:11 MCV 101.6 fL (80-95) H 05/22/20 06:11 MCH 33.2 pg (27.0-33.0) H 05/22/20 06:11 MCHC 32.6 g/dL (32.0-36.0) 05/22/20 06:11 RDW 16.3 % (11.8-14.1) H 05/22/20 06:11 Plt Count 266 x1000/uL (130-400) 05/22/20 06:11 MPV 11.3 fL (8.0-11.0) H 05/22/20 06:11 Immature Gran % See Differential 05/22/20 06:11 Neutrophils % 62.0 05/22/20 06:11 Band Neutrophils % 30.0 % 05/22/20 06:11 Lymphocytes % 2.0 05/22/20 06:11 Monocytes % 4.0 05/22/20 06:11 Eosinophils % 0.0 05/22/20 06:11 Basophils % 0.0 05/22/20 06:11 Metamyelocytes % 2.0 % 05/22/20 06:11 Absolute Neutrophils 14.05 k/cumm (1.2-6.7) H 05/22/20 06:11 Absolute Lymphocytes 0.31 k/cumm (1.2-3.4) L 05/22/20 06:11 Absolute Monocytes 0.61 k/cumm (0.11-0.7) 05/22/20 06:11 Absolute Eosinophils 0.00 k/cumm (0.0-0.7) 05/22/20 06:11 Absolute Basophils 0.00 k/cumm (0.0-0.2) 05/22/20 06:11 Differential Comment Manual differential 05/22/20 06:11 RBC Morphology See below 05/22/20 06:11 Polychromasia Present 05/22/20 06:11 Poikilocytosis 1+ 05/22/20 06:11 Anisocytosis 1+ 05/22/20 06:11 Macrocytosis 2+ 05/22/20 06:11 PT Cancelled 05/20/20 14:10 INR Cancelled 05/20/20 14:10 D-Dimer 929 ng/mlFEU (<500) H 05/20/20 09:56 ABG Sample Site Right brachial 05/22/20 07:20 ABG pH 7.36 (7.35-7.45) 05/22/20 07:20 ABG pCO2 43 mmHg (34-47) 05/22/20 07:20 ABG pO2 63 mmHg (83-108) L 05/22/20 07:20 ABG HCO3 24 mmol/L (22-28) 05/22/20 07:20 ABG Total CO2 22 mmol/L (22-29) 05/22/20 07:20 ABG O2 Saturation 92 % (94-98) L 05/22/20 07:20 ABG Base Excess -1.2 mmol/L (-3-3) 05/22/20 07:20 Oxygen Liter Flow Vt350/r20/peep5 L 05/22/20 07:20 FiO2 21 % 05/22/20 07:20 Sodium 138 mmol/L (136-145) 05/22/20 06:11 Potassium 3.4 mmol/L (3.5-5.1) L 05/22/20 06:11 Chloride 106 mmol/L (98-107) 05/22/20 06:11 Carbon Dioxide 24.9 mmol/L (21.0-32.0) 05/22/20 06:11 Anion Gap 7.1 mmol/L (3-11) 05/22/20 06:11 BUN 13 mg/dL (7-18) 05/22/20 06:11 Creatinine 0.80 mg/dL (0.70-1.30) 05/22/20 06:11 Estimated GFR/1.73 m2 >= 60.00 (mL/min/1.73m2) 05/22/20 06:11 Glucose 107 mg/dL (74-106) H D 05/22/20 06:11 Hemoglobin A1c 5.9 % (3.8-5.6) H 05/20/20 09:56 Lactate 1.0 mmol/L (0.6-1.4) 05/21/20 07:50 Calcium 7.4 mg/dL (8.5-10.1) L 05/22/20 06:11 Magnesium 2.1 mg/dL (1.8-2.4) 05/22/20 06:11 Iron 34 ug/dL (65-175) L 05/20/20 09:56 TIBC 122 ug/dL (250-450) L 05/20/20 09:56 Transferrin % Sat 28 % (20-55) 05/20/20 09:56 Ferritin 554 ng/mL (26-388) H 05/20/20 09:56 Total Bilirubin 1.2 mg/dL (0.2-1.0) H 05/22/20 06:11 Conjugated Bilirubin 0.84 mg/dL (0.00-0.20) H 05/22/20 06:11 GGT 421 U/L (15-85) H 05/21/20 06:05 AST 20 U/L (15-37) 05/22/20 06:11 ALT 17 U/L (16-63) 05/22/20 06:11 Alkaline Phosphatase 123 U/L (46-116) H 05/22/20 06:11 Troponin I < 0.05 ng/mL (<0.06) 05/21/20 19:00 Total Protein 4.1 g/dL (6.4-8.2) L 05/22/20 06:11 Albumin 1.4 g/dL (3.4-5.0) L 05/22/20 06:11 Urine Color Yellow (Yellow) 05/20/20 19:10 Urine Clarity Clear (Clear) 05/20/20 19:10 Urine pH 5.5 (5-8) 05/20/20 19:10 Ur Specific [place] 1.025 (1.005-1.025) 05/20/20 19:10 Urine Protein 30 mg/dL (Negative) H 05/20/20 19:10 Urine Ketones Negative mg/dL (Negative) 05/20/20 19:10 Urine Blood Large (Negative) H 05/20/20 19:10 Urine Nitrite Negative (Negative) 05/20/20 19:10 Urine Bilirubin Negative (Negative) 05/20/20 19:10 Urine Urobilinogen 0.2 EU/dL (Up TO 0.2) 05/20/20 19:10 Ur Leukocyte Esterase Negative (Negative) 05/20/20 19:10 Urine RBC >50 HPF (0-2) H 05/20/20 19:10 Urine WBC 3-5 HPF (0-5) 05/20/20 19:10 Ur Epithelial Cells Few HPF (Negative) 05/20/20 19:10 Urine Crystals Few uric acid HPF (Negative) 05/20/20 19:10 Urine Bacteria Few HPF (Negative) 05/20/20 19:10 Urine Casts 3-5 coarse granular LPF (Negative) 05/20/20 19:10 Urine Mucus Negative (Negative) 05/20/20 19:10 Ur Culture Indicated? C&s done as ordered 05/20/20 19:10 Urine Glucose Negative mg/dL (Negative) 05/20/20 19:10 COVID-19 PCR Negative (Negative) 05/20/20 09:50 Nasopharyn COVID-19 PCR Not Applicable 05/20/20 09:50 Ref Test Perform Site [facility] lab 05/20/20 09:50 Patient ABO/Rh O Positive 05/20/20 17:32 Antibody Screen Negative 05/20/20 17:32 Crossmatch See Detail 05/20/20 17:32 CXR: Endotracheal tube in good position . Stable small region of opacity at the left costophrenic angle which may be an effusion or area of consolidation.
[2020-05-22] MEDS: POTASSIUM CHLORIDE 20 MEQ/100 ML BAG 50 MEQ IVPB ×2 (08:36→10:46)
[2020-05-22] MEDS: Normal Saline 1,000 ML 133.6 ML IV (08:42)
[2020-05-22] MEDS: Pantoprazole 40 MG VIAL IVP (09:14)
[2020-05-22] MEDS: MORPHine 2 MG/ML SYR IVP (09:14)
[2020-05-22] MEDS: Normal Saline Flush 10 ML SYR IVP (09:14)
--- NOTE | 2020-05-22 09:42 | W.PM.DS.N ---
Date of service: 05/22/20 Time of Service: 07:15 DS: Diagnosis Discharge Diagnosis (1) Small bowel obstruction: Status: Acute (2) BPH loc w urin obs/LUTS: Status: Acute (3) Jejunal ulcer: Status: Acute (4) Alcohol withdrawal: Status: Acute (5) Acute respiratory failure with hypoxia and hypercapnia: Status: Acute (6) Rapid atrial fibrillation: Status: Suspected (7) Exocrine pancreatic insufficiency: Status: Acute (8) Essential hypertension: Status: Acute (9) GERD without esophagitis: Status: Acute Discharge Plan Disposition Patient Disposition: [facility] Condition: Critical Discharge Details Reason For Visit: SBO Admit Date/Time: 05/20/20 09:15 Admit Provider: Lorie Bazan Attending Provider: Shanti Melissa [facility]: On original exam-patient was not complaining of nausea and abdominal pain. I did review his CTs from [facility] which did show that patient was status post Whipple, that he did have a bowel obstruction, and some thickening in the stomach and. Patient was rather uncooperative and was not very forthcoming with his medical history. He did admit that he drinks 6-7 shots of alcohol a day. He has had a longstanding sobriety, but has recently relapsed. At that point patient was not giving us any further information. I did review all the information that was sent to us from [facility]. CT scan from [facility] did show that there is wall thickening of the stomach consistent with gastroenteritis. There is a small bowel obstruction with focal transition point in the left mid abdomen likely from adhesions. No free air. Changes associated from Whipple.. patient was having a lot of pain. Patient was medicated for his pain. Fluid hydration was started. An NG tube was placed. Routine nursing cares were started. Patient had abdominal pain, but did not exhibit signs of peritonitis. His abdomen was not significantly distended. There is no ascites. Postsurgical changes noted. He did not have many bowel sounds. I did reevaluate the patient at 11 AM. He at this point he is starting to exhibit pretty significant signs of withdrawal. He was quite tremulous he was becoming more incoherent during his speech. His thought processes were no longer linear and logical. His vitals remained stable. We did start him on alcohol withdrawal protocol. Again at this point he does not exhibit any signs peritonitis. Nursing had worked on getting a Delgado catheter placed but were not able to place a Delgado catheter. And urology was consulted for catheter placement. At noon I went back and evaluated the patient he had been medicated for with Perper per withdrawal protocol. He was discovered after [place] [facility] That he had an extensive. History of obstructive sleep apnea. He is not known whether he is using his CPAP at home. He had the respiratory pattern of someone with obesity hypoventilation syndrome, despite his not being obese. He was also significantly having agitation, and was quite delirious. He had developed tachycardia into the 130s. I did obtain an EKG and repeat troponins. I did consult Dr. Anyaa at this point. We did spend an hour reviewing his chart from 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 He has been on the vent multiple times with Sirs and respiratory failure. 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 His Whipple was complicated by postop infection and required multiple drains. ( E. coli adn Klebsiella) He also sustained a splenic rupture. Unknown if this was traumatic or secondary to surgery. He is on insulin and pancreatic enzymes. He has had problems with chronic problems with diarrhea. From reviewing his notes from [facility]. He had been started on metoprolol in the past for A. fib. He was in the hospital in 2018 with Sirs/sepsis and severe protein calorie malnutrition. The final discharge diagnosis was viral enteritis/clinical dehydration/severe malnutrition. They had stopped his metoprolol at that point because he was having issues with hypotension even once the sepsis had resolved. He was not in A. fib. He is also had multiple problems with the anastomotic ulcer on the jejunal side. He has been scoped multiple times and has had to have multiple transfusions because of this. He supposed to be on Carafate daily. He has not taken it for the last 2 to 3 weeks as was noted in the nurses notes at [facility]. At this point he still was very agitated and restless. He has been currently sedated for alcohol withdrawal. He was exhibiting signs of DTs. He was medicated appropriately based on his CIWA score. He was still agitated and quite hypoxic. He was started on CPAP/BiPAP status. ABG was obtained. Patient was still restless and agitated trying to climb out of bed and pulling on lines. His PCO2 was 67. I did discuss the case and on review all his records from [facility] at this point. Dr. Kumar I did agree that he needed to be intubated to protect his airway, for alcohol withdrawals, PADDY, and respiratory failure. Anesthesia was consulted for intubation. Dr. Melissa did place a central line. Anesthesia also placed an A-line. Patient was reevaluated again at 7 PM repeat labs were reviewed. His hemoglobin had dropped down to 8.4- which I think is more likely to be his baseline. there is no fluid in the NGT/ no blood. He has not moved his bowels or had any bloody bowel movement since he has been in the hospital. He will be transfused. He has had some transient hypotension. Whether this is from the anemia or from the diltiazem drip or from propofol or from the alcohol withdrawal is undetermined at this point. However he does not seem to be actively hemorrhaging. But he does have an extensive history of GI bleed from ulceration at his gastrojejunal anastomosis. There is no signs of ischemic bowel or other acute surgical emergency. We will continue with conservative medical management of his abdomen at this time. Hospitals service was consulted for medical management as well. From reviewing his notes at [facility] he also had had a PE he in the past while on Lovenox. He was started on Coumadin but this had to be discontinued because of pulmonary bronchial hemorrhage. 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 He recently had a outpatient sleep study done which did recommend CPAP machine. He was under investigation by cardiology at [facility] for syncopal episodes. Past surgeries significant for: Iridotomy, whipple & BII reconstruction- 2014, mult IR drainages, mult EGD, multiple EUS and biopsy, G-tube and J-tube, IR angio-embolization of the splenic rupture, chest tube, multiple paracentesis, anterior abdominal wall hernia repair at [facility] in 2019 Patient eventually intubated for respiratory failure. A-Line and Central line placed. NG tube in place with minimal output for first 24 hours. Abdominal XRAY the day of admission showed dilated small bowel with distal decompressed bowel. No air in the large bowel. Subsequent XRAYs did not show improvement. WBC count has been slowly climbing up to 15 today with a left shift. HGB has been stable. On exam today 05/22, his abdomen is tender in the narcisa-umbilical area. [facility] [place]. [facility] accepting patient for higher level of care. Home Meds and New Rx's Prescriptions: Continued furosemide [Lasix] 40 mg tablet 40 mg PO BID RF: 0 mirtazapine 30 mg tablet 15 mg PO HS RF: 0 nicotine 7 mg/24 hr patch 24 hour 1 patch TD Q24H RF: 0 sennosides-docusate sodium 8.6-50 mg tablet 2 tab PO BID PRN (Reason: constipation) RF: 0 Slow Fe 142 mg (45 mg iron) tablet extended release 142 mg PO DAILY RF: 0 acetaminophen [Tylenol Extra Strength] 500 mg tablet 500 mg PO Q4H PRNRF: 0 cholecalciferol (vitamin D3) 1,000 unit capsule 1,000 unit PO DAILY RF: 0 sildenafil [Viagra] 50 MG tablet 50 mg PO PRN RF: 0 citalopram 20 MG tablet 20 mg PO DAILY RF: 0 albuterol sulfate [ProAir HFA] 8.5 GM HFA aerosol inhaler 2 puff Inhalation Q4H PRN RF: 0 Zenpep 1 EACH capsule,delayed release(DR/EC) 1 tab-cap PO TID RF: 0 polyethylene glycol 3350 [Miralax] 17 GM powder in packet 255 gm PO for colonoscopy Qty: 1 RF: 0 omeprazole 10 mg capsule,delayed release(DR/EC) 40 mg PO BID RF: 0 metoprolol succinate 100 mg tablet extended release 24 hr 25 mg PO DAILY RF: 0 ropinirole [Requip] 2 MG tablet 1 tab PO HS RF: 0 sucralfate [Carafate] 1 gram Tablet 1 g PO QACHS RF: 0 citalopram 10 mg Tablet RF: 0 furosemide 20 mg Tablet 20 mg PO DAILY RF: 0 potassium chloride 10 mEq Tablet Extended Release 10 meq PO DAILY RF: 0 pantoprazole [Protonix] 40 mg Tablet,Delayed Release (Dr/Ec) 40 mg PO Q12H RF: 0 aspirin 81 mg Tablet,Chewable 81 mg PO DAILY RF: 0 acetaminophen 325 mg Tablet 650 mg PO Q6H PRN PRNRF: 0 pantoprazole [Protonix] 40 mg Tablet,Delayed Release (Dr/Ec) 40 PO BID RF: 0 oxycodone [Roxicodone] 5 mg Tablet 5 mg PO Q4H PRN PRNRF: 0 magnesium chloride [Mag 64] 64 mg Tablet,Delayed Release (Dr/Ec) PO BID RF: 0 Discharge Instructions Activity:: bed rest with turns Diet:: NPO Discharge Orders Discharge Orders: Discharge Order (Routine); Ordered 05/22/20 Ordered By: Shanti Melissa DS: Summary Status at Discharge Functional status at discharge: bed bound Overall status at discharge: other (intubated and sedated) Mental Status: other (intubated and sedated) Speech and Movement: other Mood: other (intubated and sedated) Affect: other Exam Const Other: Sedated on the Vent HENTN Head: normocephalic and atraumatic Eyes Pupils: PERRL Resp Effort & Inspection: normal respiratory effort Auscultation: clear to auscultation bilaterally Cardio Rate: regular rate Rhythm: regular rhythm Heart Sounds: no murmurs GI Inspection: distended and scar Palpation: soft, no guarding and tender periumbilically Auscultation: hypoactive bowel sounds Other: Delgado in place Psych Mental Status: other (intubated and sedated) Speech and Movement: other Mood: other (intubated and sedated) Affect: other DS: Data Vitals/I&O Vitals and I&O: Vital Signs Temperature 97.2 F L 05/22/20 04:12 Temperature Source Temporal Artery Scan 05/22/20 06:00 Pulse 88 05/22/20 07:41 Pulse 87 05/22/20 03:01 Respiratory Rate 20 05/22/20 07:41 Respiratory Effort 05/22/20 04:12 Respiratory Depth Normal 05/22/20 04:12 Respiratory Pattern Normal 05/22/20 04:12 Blood Pressure 99/64 L 05/22/20 04:00 Blood Pressure Mean 69 05/22/20 03:00 Blood Pressure Position Supine 05/21/20 15:34 Pulse Oximetry 93 L 05/22/20 07:41 Respiratory End-tidal CO2 26 05/22/20 07:40 Oxygen Delivery Method Mechanical Ventilator 05/22/20 07:41 Oxygen Flow Rate 0 05/22/20 07:41 Fraction of Inspired Oxygen (FIO2) 30 05/22/20 07:41 Pain Level 7 05/21/20 12:00 Intake & Output 05/21/20 05/21/20 05/22/20 11:59 23:59 11:59 Intake Total 3272.262 / 5558.737 2286.475 / 5558.737 1352.064 / 1352.064 Output Total 475 / 914 439 / 914 420 / 420 Balance 2797.262 / 4644.737 1847.475 / 4644.737 932.064 / 932.064 Weight 130 lb 1.164 oz 157 lb 3.033 oz Intake: IV 2472.262 / 4758.737 2286.475 / 4758.737 1352.064 / 1352.064 Right Radial 0 / 0 Blood Product 800 / 800 Rbc Leuko Reduced Unit 500 / 500 [id number] Rbc Leuko Reduced Unit 300 / 300 [id number] Output: Gastric Drainage 25 / 55 30 / 55 200 / 200 Left Nare 25 / 55 30 / 55 200 / 200 Urine 450 / 859 409 / 859 220 / 220 Other: Urine Color Yellow Dark Juliet Light Juliet Light Juliet Urine Appearance Clear Clear Clear Urine Odor Strong Strong None Comment delgado drainage bag changed out for a urinemeter. urimeter in place. Gastric Occult Blood Left Nare Positive Voiding Methods Indwelling Catheter Indwelling Catheter Indwelling Catheter Data Completed and Pending Labs on day of discharge: Labs from last 24 hours 05/22/20 05/22/20 05/22/20 07:20 06:11 06:11 WBC 15.27 H RBC 3.65 L Hgb 12.1 L Hct 37.1 L MCV 101.6 H MCH 33.2 H MCHC 32.6 RDW 16.3 H Plt Count 266 MPV 11.3 H Immature Gran % See Differential Neutrophils % 62.0 Band Neutrophils % 30.0 Lymphocytes % 2.0 Monocytes % 4.0 Eosinophils % 0.0 Basophils % 0.0 Metamyelocytes % 2.0 Absolute Neutrophils 14.05 H Absolute Lymphocytes 0.31 L Absolute Monocytes 0.61 Absolute Eosinophils 0.00 Absolute Basophils 0.00 Differential Comment Manual differential RBC Morphology See below Polychromasia Present Poikilocytosis 1+ Anisocytosis 1+ Macrocytosis 2+ ABG Sample Site Right brachial ABG pH 7.36 ABG pCO2 43 ABG pO2 63 L ABG HCO3 24 ABG Total CO2 22 ABG O2 Saturation 92 L ABG Base Excess -1.2 Oxygen Liter Flow Vt350/r20/peep5 FiO2 21 Sodium 138 Potassium 3.4 L Chloride 106 Carbon Dioxide 24.9 Anion Gap 7.1 BUN 13 Creatinine 0.80 Estimated GFR/1.73 m2 >= 60.00 Glucose 107 H D Calcium 7.4 L Magnesium 2.1 Total Bilirubin 1.2 H Conjugated Bilirubin 0.84 H AST 20 ALT 17 Alkaline Phosphatase 123 H Troponin I Total Protein 4.1 L Albumin 1.4 L 05/21/20 05/21/20 19:00 19:00 WBC RBC Hgb 12.0 L Hct 35.9 L MCV MCH MCHC RDW Plt Count MPV Immature Gran % Neutrophils % Band Neutrophils % Lymphocytes % Monocytes % Eosinophils % Basophils % Metamyelocytes % Absolute Neutrophils Absolute Lymphocytes Absolute Monocytes Absolute Eosinophils Absolute Basophils Differential Comment RBC Morphology Polychromasia Poikilocytosis Anisocytosis Macrocytosis ABG Sample Site ABG pH ABG pCO2 ABG pO2 ABG HCO3 ABG Total CO2 ABG O2 Saturation ABG Base Excess Oxygen Liter Flow FiO2 Sodium 136 Potassium 3.8 Chloride 104 Carbon Dioxide 25.4 Anion Gap 6.6 BUN 15 Creatinine 0.93 Estimated GFR/1.73 m2 >= 60.00 Glucose 203 H Calcium 7.1 L Magnesium Total Bilirubin Conjugated Bilirubin AST ALT Alkaline Phosphatase Troponin I < 0.05 Total Protein Albumin [facility] Medical History Acute respiratory failure with hypoxia (Acute) Alcohol induced acute pancreatitis (Acute) BPH loc w urin obs/LUTS (Acute) Cervical spine fracture (Acute) Cholangitis (Acute) Chronic low back pain (Acute) COPD (chronic obstructive pulmonary disease) Depression (Chronic) Diastolic dysfunction (Acute) DM (diabetes mellitus) non-insulin dependent Essential hypertension (Acute) Exocrine pancreatic insufficiency (Acute) GERD without esophagitis (Acute) History of ETOH abuse Infarction of spleen (Acute) Jejunal ulcer (Acute) Narrow angle glaucoma suspect (Acute) PADDY (obstructive sleep apnea) Protein calorie malnutrition (Inactive) Pulmonary embolism (Chronic) RLS (restless legs syndrome) (Acute) Syncopal episodes (Chronic) Unspecified primary angle-closure glaucoma (Acute) Surgical [place] [facility] History of esophagogastroduodenoscopy (EGD) (Inactive) History of pancreatectomy (Acute) Whipple/Billroth II S/P colonoscopy (Acute) Splenic rupture (Acute) Family History Mother Bone cancer Father MVA (motor vehicle accident) Brother Stomach cancer Daughter No problems noted. Social History Smoking/Tobacco Use Status: Current every day Drug use: Never What is your relationship status?: Panel score (0-1 are the most socially isolated patients): 0
--- NOTE | 2020-05-22 10:12 | PDOC.CMPRO ---
Care Management Progress Note Mohit continues to be intubated in the ICU and closely monitored. Mohit will transfer to a tertiary care facility for higher level of care per provider and pending bed availability. He will transport via EMS, coordinated by RN Brine Tank Separator Operator. CM continues to follow.
--- NOTE | 2020-05-22 11:09 | W.PM.PROGNOT ---
Date of Service Date of service: 05/22/20 Time of Service: 06:45 Assessment and Plan Assessment and plan (1) Small bowel obstruction: Status: Acute Assessment and plan: Patient is currently hemodynamically stable. He is stable on the ventilator no signs pneumonia at this point. He is been in normal sinus rhythm. He has been normotensive. He has had no ST or T wave changes. He did have some runs of Tachycardia per nursing staff overnight He is continues to withdraw from alcohol. He is sedated on propofol. Not paralyzed He does have a small bowel obstruction which does not appear to be resolving at this time. We did review a repeat abdominal x-ray. He still is obstructed and there is no free air. His hemoglobin is stable at 12.0. Abdomen is more distended today and tender which is new. WBC count is going up despite antibiotics P\\ Case discussed with surgeon at [facility] [place] as well as [facility] Patient will be transfered to SICU as soon as bed is available I spoke to patients daughter and let her know what was going on and that he would get transfered today to [facility] [place]. Subjective Subjective Interval history since last seen: Mr. Martinez continues to be intubated and sedated for his delirium tremens. His blood pressures have been low in the 90s to high 80s urine output has been between 25 and 30 cc an hour. Per nursing staff his NG output has increased and he put out 200 cc of bilious discharge overnight. Per nursing staff also they feel his abdomen is more distended than yesterday. No BMs. Exam Const Other: Sedated on the [facility] Head: normocephalic and atraumatic Resp Effort & Inspection: normal respiratory effort Auscultation: clear to auscultation bilaterally Cardio Rate: regular rate Rhythm: regular rhythm Heart Sounds: no murmurs GI Inspection: distended Palpation: soft, no hepatosplenomegaly and tender (periumbilical and epigastric, no guarding) Auscultation: hypoactive bowel sounds Objective Objective Clinical Data: Abnormal lab results 05/21/20 05/21/20 05/22/20 Range/Units 19:00 19:00 06:11 WBC (4.4-10.8) k/cumm RBC (4.50-6.00) m/cumm Hgb 12.0 L (13.5-17.5) g/dL Hct 35.9 L (40.0-50.0) % MCV (80-95) fL MCH (27.0-33.0) pg RDW (11.8-14.1) % MPV (8.0-11.0) fL Absolute Neutrophils (1.2-6.7) k/cumm Absolute Lymphocytes (1.2-3.4) k/cumm ABG pO2 (83-108) mmHg ABG O2 Saturation (94-98) % Potassium 3.4 L (3.5-5.1) mmol/L Glucose 203 H 107 H D (74-106) mg/dL Calcium 7.1 L 7.4 L (8.5-10.1) mg/dL Total Bilirubin 1.2 H (0.2-1.0) mg/dL Conjugated Bilirubin 0.84 H (0.00-0.20) mg/dL Alkaline Phosphatase 123 H (46-116) U/L Total Protein 4.1 L (6.4-8.2) g/dL Albumin 1.4 L (3.4-5.0) g/dL 05/22/20 05/22/20 Range/Units 06:11 07:20 WBC 15.27 H (4.4-10.8) k/cumm RBC 3.65 L (4.50-6.00) m/cumm Hgb 12.1 L (13.5-17.5) g/dL Hct 37.1 L (40.0-50.0) % MCV 101.6 H (80-95) fL MCH 33.2 H (27.0-33.0) pg RDW 16.3 H (11.8-14.1) % MPV 11.3 H (8.0-11.0) fL Absolute Neutrophils 14.05 H (1.2-6.7) k/cumm Absolute Lymphocytes 0.31 L (1.2-3.4) k/cumm ABG pO2 63 L (83-108) mmHg ABG O2 Saturation 92 L (94-98) % Potassium (3.5-5.1) mmol/L Glucose (74-106) mg/dL Calcium (8.5-10.1) mg/dL Total Bilirubin (0.2-1.0) mg/dL Conjugated Bilirubin (0.00-0.20) mg/dL Alkaline Phosphatase (46-116) U/L Total Protein (6.4-8.2) g/dL Albumin (3.4-5.0) g/dL Vital Signs Temperature 97.7 F 05/22/20 10:00 Temperature Source Temporal Artery Scan 05/22/20 10:00 Pulse 83 05/22/20 10:00 Pulse 88 05/22/20 10:01 Respiratory Rate 20 05/22/20 10:01 Respiratory Effort 05/22/20 10:00 Respiratory Depth Normal 05/22/20 07:30 Respiratory Pattern Normal 05/22/20 07:30 Blood Pressure 83/44 L 05/22/20 10:00 Blood Pressure Mean 54 05/22/20 10:00 Blood Pressure Position Supine 05/22/20 07:30 Pulse Oximetry 90 L 05/22/20 09:01 Respiratory End-tidal CO2 27 05/22/20 10:01 Oxygen Delivery Method Mechanical Ventilator 05/22/20 07:41 Oxygen Flow Rate 0 05/22/20 07:41 Fraction of Inspired Oxygen (FIO2) 30 05/22/20 07:41 Pain Level 7 05/21/20 12:00 Intake & Output 05/21/20 05/21/20 05/22/20 11:59 23:59 11:59 Intake Total 3272.262 / 5558.737 2286.475 / 5558.737 1452.064 / 1452.064 Output Total 475 / 914 439 / 914 471 / 471 Balance 2797.262 / 4644.737 1847.475 / 4644.737 981.064 / 981.064 Weight 130 lb 1.164 oz 157 lb 3.033 oz Intake: IV 2472.262 / 4758.737 2286.475 / 4758.737 1452.064 / 1452.064 Right Radial 0 / 0 Blood Product 800 / 800 Rbc Leuko Reduced Unit 500 / 500 [id number] Rbc Leuko Reduced Unit 300 / 300 [id number] Output: Gastric Drainage 30 / 55 200 / 200 Left Nare 30 / 200 / 200 Urine 450 / 859 409 / 859 271 / 271 Other: Urine Color Yellow Dark Juliet Yellow Light Juliet Urine Appearance Clear Clear Clear Urine Odor Strong Strong None Comment delgado drainage bag changed out for a urinemeter. urimeter in place. Gastric Occult Blood Left Nare Positive Voiding Methods Indwelling Catheter Indwelling Catheter Indwelling Catheter Laboratory Results WBC 15.27 k/cumm (4.4-10.8) H 05/22/20 06:11 RBC 3.65 m/cumm (4.50-6.00) L 05/22/20 06:11 Hgb 12.1 g/dL (13.5-17.5) L 05/22/20 06:11 Hct 37.1 % (40.0-50.0) L 05/22/20 06:11 MCV 101.6 fL (80-95) H 05/22/20 06:11 MCH 33.2 pg (27.0-33.0) H 05/22/20 06:11 MCHC 32.6 g/dL (32.0-36.0) 05/22/20 06:11 RDW 16.3 % (11.8-14.1) H 05/22/20 06:11 Plt Count 266 x1000/uL (130-400) 05/22/20 06:11 MPV 11.3 fL (8.0-11.0) H 05/22/20 06:11 Immature Gran % See Differential 05/22/20 06:11 Neutrophils % 62.0 05/22/20 06:11 Band Neutrophils % 30.0 % 05/22/20 06:11 Lymphocytes % 2.0 05/22/20 06:11 Monocytes % 4.0 05/22/20 06:11 Eosinophils % 0.0 05/22/20 06:11 Basophils % 0.0 05/22/20 06:11 Metamyelocytes % 2.0 % 05/22/20 06:11 Absolute Neutrophils 14.05 k/cumm (1.2-6.7) H 05/22/20 06:11 Absolute Lymphocytes 0.31 k/cumm (1.2-3.4) L 05/22/20 06:11 Absolute Monocytes 0.61 k/cumm (0.11-0.7) 05/22/20 06:11 Absolute Eosinophils 0.00 k/cumm (0.0-0.7) 05/22/20 06:11 Absolute Basophils 0.00 k/cumm (0.0-0.2) 05/22/20 06:11 Differential Comment Manual differential 05/22/20 06:11 RBC Morphology See below 05/22/20 06:11 Polychromasia Present 05/22/20 06:11 Poikilocytosis 1+ 05/22/20 06:11 Anisocytosis 1+ 05/22/20 06:11 Macrocytosis 2+ 05/22/20 06:11 PT Cancelled 05/20/20 14:10 INR Cancelled 05/20/20 14:10 D-Dimer 929 ng/mlFEU (<500) H 05/20/20 09:56 ABG Sample Site Right brachial 05/22/20 07:20 ABG pH 7.36 (7.35-7.45) 05/22/20 07:20 ABG pCO2 43 mmHg (34-47) 05/22/20 07:20 ABG pO2 63 mmHg (83-108) L 05/22/20 07:20 ABG HCO3 24 mmol/L (22-28) 05/22/20 07:20 ABG Total CO2 22 mmol/L (22-29) 05/22/20 07:20 ABG O2 Saturation 92 % (94-98) L 05/22/20 07:20 ABG Base Excess -1.2 mmol/L (-3-3) 05/22/20 07:20 Oxygen Liter Flow Vt350/r20/[id number] L 05/22/20 07:20 FiO2 21 % 05/22/20 07:20 Sodium 138 mmol/L (136-145) 05/22/20 06:11 Potassium 3.4 mmol/L (3.5-5.1) L 05/22/20 06:11 Chloride 106 mmol/L (98-107) 05/22/20 06:11 Carbon Dioxide 24.9 mmol/L (21.0-32.0) 05/22/20 06:11 Anion Gap 7.1 mmol/L (3-11) 05/22/20 06:11 BUN 13 mg/dL (7-18) 05/22/20 06:11 Creatinine 0.80 mg/dL (0.70-1.30) 05/22/20 06:11 Estimated GFR/1.73 m2 >= 60.00 (mL/min/1.73m2) 05/22/20 06:11 Glucose 107 mg/dL (74-106) H D 05/22/20 06:11 Hemoglobin A1c 5.9 % (3.8-5.6) H 05/20/20 09:56 Lactate 1.0 mmol/L (0.6-1.4) 05/21/20 07:50 Calcium 7.4 mg/dL (8.5-10.1) L 05/22/20 06:11 Magnesium 2.1 mg/dL (1.8-2.4) 05/22/20 06:11 Iron 34 ug/dL (65-175) L 05/20/20 09:56 TIBC 122 ug/dL (250-450) L 05/20/20 09:56 Transferrin % Sat 28 % (20-55) 05/20/20 09:56 Ferritin 554 ng/mL (26-388) H 05/20/20 09:56 Total Bilirubin 1.2 mg/dL (0.2-1.0) H 05/22/20 06:11 Conjugated Bilirubin 0.84 mg/dL (0.00-0.20) H 05/22/20 06:11 GGT 421 U/L (15-85) H 05/21/20 06:05 AST 20 U/L (15-37) 05/22/20 06:11 ALT 17 U/L (16-63) 05/22/20 06:11 Alkaline Phosphatase 123 U/L (46-116) H 05/22/20 06:11 Troponin I < 0.05 ng/mL (<0.06) 05/21/20 19:00 Total Protein 4.1 g/dL (6.4-8.2) L 05/22/20 06:11 Albumin 1.4 g/dL (3.4-5.0) L 05/22/20 06:11 Urine Color Yellow (Yellow) 05/20/20 19:10 Urine Clarity Clear (Clear) 05/20/20 19:10 Urine pH 5.5 (5-8) 05/20/20 19:10 Ur Specific [place] 1.025 (1.005-1.025) 05/20/20 19:10 Urine Protein 30 mg/dL (Negative) H 05/20/20 19:10 Urine Ketones Negative mg/dL (Negative) 05/20/20 19:10 Urine Blood Large (Negative) H 05/20/20 19:10 Urine Nitrite Negative (Negative) 05/20/20 19:10 Urine Bilirubin Negative (Negative) 05/20/20 19:10 Urine Urobilinogen 0.2 EU/dL (Up TO 0.2) 05/20/20 19:10 Ur Leukocyte Esterase Negative (Negative) 05/20/20 19:10 Urine RBC >50 HPF (0-2) H 05/20/20 19:10 Urine WBC 3-5 HPF (0-5) 05/20/20 19:10 Ur Epithelial Cells Few HPF (Negative) 05/20/20 19:10 Urine Crystals Few uric acid HPF (Negative) 05/20/20 19:10 Urine Bacteria Few HPF (Negative) 05/20/20 19:10 Urine Casts 3-5 coarse granular LPF (Negative) 05/20/20 19:10 Urine Mucus Negative (Negative) 05/20/20 19:10 Ur Culture Indicated? C&s done as ordered 05/20/20 19:10 Urine Glucose Negative mg/dL (Negative) 05/20/20 19:10 COVID-19 PCR Negative (Negative) 05/20/20 09:50 Nasopharyn COVID-19 PCR Not Applicable 05/20/20 09:50 [facility] 05/20/20 09:50 Patient ABO/Rh O Positive 05/20/20 17:32 Antibody Screen Negative 05/20/20 17:32 Crossmatch See Detail 05/20/20 17:32
[2020-05-22] MEDS: Normal Saline 1,000 ML 1000 ML IV (11:14)
== END 2020-05-22 11:25 | disposition short-term general hospital (02) | DRG 388 ==
PROVIDERS: Internal Medicine; Admitting Provider Surgery; PCP Family Medicine; Visit Provider Surgery
DX: K56.50 Intestinal adhesions [bands], unspecified as to partial versus complete obstruction (principal); J96.01 Acute respiratory failure with hypoxia; J96.02 Acute respiratory failure with hypercapnia; E87.2 Acidosis; F10.231 Alcohol dependence with withdrawal delirium; K28.3 Acute gastrojejunal ulcer without hemorrhage or perforation; K28.9 Gastrojejunal ulcer, unspecified as acute or chronic, without hemorrhage or perforation; E86.0 Dehydration; E83.42 Hypomagnesemia; R33.9 Retention of urine, unspecified; I48.91 Unspecified atrial fibrillation; I10 Essential (primary) hypertension; K86.81 Exocrine pancreatic insufficiency; N40.1 Benign prostatic hyperplasia with lower urinary tract symptoms; Z86.711 Personal history of pulmonary embolism; M10.9 Gout, unspecified; F17.210 Nicotine dependence, cigarettes, uncomplicated; I45.10 Unspecified right bundle-branch block; F10.97 Alcohol use, unspecified with alcohol-induced persisting dementia; F32.9 Major depressive disorder, single episode, unspecified; G25.81 Restless legs syndrome; H40.20X0 Unspecified primary angle-closure glaucoma, stage unspecified; K21.9 Gastro-esophageal reflux disease without esophagitis; M54.5 Low back pain; G47.33 Obstructive sleep apnea (adult) (pediatric); D64.9 Anemia, unspecified; T47.1X6A Underdosing of other antacids and anti-gastric-secretion drugs, initial encounter; Z79.4 Long term (current) use of insulin
CPT/HCPCS: 31500; 94002; 94003 ×2; 36556; 36415; 36430; 36591; 71045; 80048; 80053; 80076; 82805; 86850; 86900; 86901; 86920; 99221; 99233; 99239; 99252; 99255; 99291; 99292; U0003; 36600; 72020; 74018; 81003; 81015; 82728; 82977; 83036; 83540; 83550; 83605; 83735; 84484; 85014; 85018; 85025; 85379; 85610; 87086; 93306; 94640; 99223; J0131; J1200; J2060; J2250; J2270; J2405; J2543; J2704; J3475; J3480; J7620; P9016

== ENCOUNTER → 2020-08-26 13:09 | Outpatient (BNVA) | payer OTHER, MEDICAID, SELFPAY | PROVIDERS: PCP Family Medicine; Referring Provider Family Medicine; Visit Provider Psychiatry & Neurology Neurology | DX: I95.1 Orthostatic hypotension (principal); R29.2 Abnormal reflex; Z79.899 Other long term (current) drug therapy | CPT/HCPCS: 99205 ==

== ENCOUNTER → 2020-09-28 13:05 | Outpatient (BNVA) | payer OTHER, MEDICARE, MEDICAID, SELFPAY | PROVIDERS: PCP Family Medicine; Referring Provider Family Medicine; Visit Provider Psychiatry & Neurology Neurology | DX: R69 Illness, unspecified (principal) ==

== ENCOUNTER → 2020-10-14 08:13 | Outpatient (BNVA) | payer OTHER, MEDICARE, MEDICAID, SELFPAY | PROVIDERS: PCP Family Medicine; Referring Provider Family Medicine; Visit Provider Psychiatry & Neurology Neurology | DX: I95.1 Orthostatic hypotension (principal); R29.2 Abnormal reflex | CPT/HCPCS: 99213; 99442 ==

== ENCOUNTER → 2020-11-18 07:59 | Outpatient (BNVA) | payer OTHER, MEDICARE, MEDICAID, SELFPAY | PROVIDERS: PCP Family Medicine; Referring Provider Family Medicine; Visit Provider Psychiatry & Neurology Neurology | DX: I95.1 Orthostatic hypotension (principal); R29.2 Abnormal reflex; I10 Essential (primary) hypertension; E11.9 Type 2 diabetes mellitus without complications | CPT/HCPCS: 99443 ==